=== PATIENT | female | born 1980 | race Caucasian/White ===

== ENCOUNTER 2016-09-11 21:17 | Emergency (ER) | payer OTHER ==
--- NOTE | 2016-09-11 21:40 | ER Document Report ---
ED Medical Screen (RME) - General Stated Complaint: CHEST DISCOMFORT,PRESSURE Notes: patient is a 36 year old female p/w shortness of breath and chest pain for 1.5 weeks, quit smoking Jul 28. Denies any fever, chills I have greeted and performed a rapid initial assessment of this patient. A comprehensive ED assessment and evaluation of the patient, analysis of test results and completion of the medical decision making process will be conducted by additional ED providers. TRAVEL OUTSIDE OF THE [place] IN LAST 30 DAYS: No - Related Data Allergies/Adverse Reactions: No Known Allergies Allergy (Unverified 11/13/13 13:43) Past Medical History - Past Medical History Cardiac Medical History: Reports: Hx Atrial Fibrillation Psychiatric Medical History: Reports: Hx Anxiety - Immunizations Hx Diphtheria, Pertussis, Tetanus Vaccination: Yes Physical Exam - Vital signs Vitals: Temp Pulse Resp BP Pulse Ox 98.4 F 100 16 129/81 H 99 09/11/16 21:33 09/11/16 21:33 09/11/16 21:33 09/11/16 21:33 09/11/16 21:33 Course - Vital Signs Vital signs: Temp Pulse Resp BP Pulse Ox 98.4 F 100 16 129/81 H 99 09/11/16 21:33 09/11/16 21:33 09/11/16 21:33 09/11/16 21:33 09/11/16 21:33
--- NOTE | 2016-09-11 23:36 | ER Document Report ---
ED Cardiac - General Chief Complaint: Chest Pain Stated Complaint: CHEST DISCOMFORT,PRESSURE Time seen by provider: 23:36 Mode of Arrival: Ambulatory Information source: Patient TRAVEL OUTSIDE OF THE [place] IN LAST 30 DAYS: No - HPI Patient complains to provider of: Chest pain, Chest tightness Was the onset of pain: Gradual Is the pain a: New problem Chest pain location: Substernal Quality of pain: Moderate Chest pain radiation location: Back Severity now: Mild Severity at worst: Moderate Pain level currently: 1 Chest pain precipitating factors: At Rest Cardiac risk factors: Smoker Positive cardiac history: No Associated symptoms: Shortness of breath Exacerbated by: Denies Relieved by: Nothing Similar symptoms previously: No Recently seen / treated by doctor: No Notes: Patient is a 36-year-old female presenting to the emergency room complaining of tightness in her chest, pain that radiates to her back, symptoms have been going on for the past few days but worsened today, she recently quit smoking, she denies being on any oral control or other hormone replacement treatment, no recent traveling, no sick contacts - Related Data Allergies/Adverse Reactions: No Known Allergies Allergy (Verified 09/11/16 21:41) Past Medical History - General Information source: Patient - Social History Smoking Status: Former Smoker Chew tobacco use (# tins/day): No Frequency of alcohol use: Occasional Drug Abuse: None Family History: Reviewed & Not Pertinent Patient has suicidal ideation: No Patient has homicidal ideation: No - Past Medical History Cardiac Medical History: Reports: Hx Atrial Fibrillation Renal/ Medical History: Denies: Hx Peritoneal Dialysis Psychiatric Medical History: Reports: Hx Anxiety - Immunizations Hx Diphtheria, Pertussis, Tetanus Vaccination: Yes Review of Systems - Review of Systems Constitutional: No symptoms reported EENT: No symptoms reported Cardiovascular: See HPI Respiratory: See HPI Gastrointestinal: No symptoms reported Genitourinary: No symptoms reported Female Genitourinary: No symptoms reported Musculoskeletal: No symptoms reported Skin: No symptoms reported Hematologic/Lymphatic: No symptoms reported Neurological/Psychological: No symptoms reported -: Yes All other systems reviewed and negative Physical Exam - Vital signs Vitals: Temp Pulse Resp BP Pulse Ox 98.4 F 100 16 129/81 H 99 09/11/16 21:33 09/11/16 21:33 09/11/16 21:33 09/11/16 21:33 09/11/16 21:33 Interpretation: Normal - General General appearance: Appears well, Alert - HEENT Head: Normocephalic, Atraumatic Eyes: Normal Pupils: PERRL - Respiratory Respiratory status: No respiratory distress Chest status: Tender - Tender to palpate over midsternum Breath sounds: Normal Chest palpation: Normal - Cardiovascular Rhythm: Regular Heart sounds: Normal auscultation Murmur: No - Abdominal Inspection: Normal Distension: No distension Bowel sounds: Normal Tenderness: Nontender Organomegaly: No organomegaly - Back Back: Normal, Nontender - Extremities General upper extremity: Normal inspection, Nontender, Normal color, Normal ROM , Normal temperature General lower extremity: Normal inspection, Nontender, Normal color, Normal ROM , Normal temperature, Normal weight bearing. No: Cal's sign Calf: Nontender - Neurological Neuro grossly intact: Yes Cognition: Normal Orientation: AAOx4 Basye Coma Scale Eye Opening: Spontaneous Татьяна Coma Scale Verbal: Oriented Татьяна Coma Scale Motor: Obeys Commands Татьяна Coma Scale Total: 15 Speech: Normal Motor strength normal: LUE, RUE, LLE, RLE Sensory: Normal - Psychological Associated symptoms: Normal affect, Normal mood - Skin Skin Temperature: Warm Skin Moisture: Dry Skin Color: Normal Course - Re-evaluation Re-evalutation: 09/12/16 02:28 Patient's lab and imaging findings were discussed with her at bedside, which are unremarkable, patient is noted to have reproducible pain in the midsternum, symptoms are likely related to musculoskeletal pain, patient was advised to take Motrin 600 mg 3 times a day, follow up with her primary care provider or return if symptoms worsen, patient acknowledges understanding and agreement with this plan - Vital Signs Vital signs: Temp Pulse Resp BP Pulse Ox 98.4 F 90 16 129/81 H 99 09/11/16 21:38 09/11/16 21:38 09/11/16 21:38 09/11/16 21:38 09/11/16 21:38 - Laboratory Result Diagrams: 09/12/16 00:10 09/12/16 00:10 Laboratory results interpreted by me: 09/12/16 00:10 WBC 12.0 H - Diagnostic Test Radiology reviewed: Image reviewed, Reports reviewed - EKG Interpretation by Me EKG shows normal: Sinus rhythm Rate: Normal Rhythm: NSR Discharge - Discharge Clinical Impression: Chest wall pain Condition: Stable Disposition: HOME, SELF-CARE Instructions: Anti-Inflammatory Medication ([facility]), Chest Wall Pain ([facility]) Additional Instructions: Follow up with your primary care provider in one to 2 days. Return to the emergency room immediately if symptoms worsen or any additional concerns. Referrals: EVIE WORKMAN MD [Primary Care Provider] - Follow up as needed
[2016-09-12 00:33] LABS: ABSOLUTE BASOPHILS # (AUTO) 0.1 10^3/uL (0.0-0.2); ABSOLUTE EOSINOPHILS # (AUTO) 0.2 10^3/uL (0.0-0.6); ABSOLUTE MONOCYTES (AUTO) 0.7 10^3/uL (0.1-1.4); ABSOLUTE NEUT (AUTO) 8.1 10^3/uL (1.7-8.2); BASOPHILS % (AUTO) 0.8 % (0-2); EOSINOPHILS % (AUTO) 1.5 % (0-6); HEMATOCRIT 40.9 % (36.0-47.0); HEMOGLOBIN 13.8 g/dL (12.0-15.5); HGB HCT DIFFERENCE 0.5; LYMPHOCYTES % (AUTO) 24.7 % (13-45); MEAN CORPUSCULAR HEMOGLOBIN 28.9 pg (27.0-33.4); MEAN CORPUSCULAR HGB CONC 33.7 g/dL (32.0-36.0); MEAN CORPUSCULAR VOLUME 86 fl (80-97); MONOCYTES % (AUTO) 5.7 % (3-13); RED BLOOD COUNT 4.77 10^6/uL (3.72-5.28); RED CELL DISTRIBUTION WIDTH 13.2 % (11.5-14.0); SEGMENTED NEUTROPHILS % (AUTO) 67.3 % (42-78)
[2016-09-12 00:44] LABS: ALANINE AMINOTRANSFERASE 29 U/L (9-52); ALBUMIN 4.2 g/dL (3.5-5.0); ALKALINE PHOSPHATASE 54 U/L (38-126); ANION GAP 10 (5-19); ASPARTATE AMINO TRANSFERASE 25 U/L (14-36); BILIRUBIN,TOTAL 0.4 mg/dL (0.2-1.3); BLOOD UREA NITROGEN 17 mg/dL (7-20); CALCIUM 10.1 mg/dL (8.4-10.2); CARBON DIOXIDE 25 mmol/L (22-30); CHLORIDE 104 mmol/L (98-107); CREATINE KINASE 106 U/L (30-135); GLUCOSE 96 mg/dL (75-110); POTASSIUM 4.2 mmol/L (3.6-5.0); SODIUM 138.6 mmol/L (137-145)
[2016-09-12 00:57] LABS: TROPONIN I < 0.012 ng/mL
[2016-09-12 05:14] VITALS: BP 112/54
--- NOTE | 2016-09-12 12:11 | EKG REPORT ---
SEVERITY:- NORMAL ECG - SINUS RHYTHM : Confirmed by: Roro Langford MD 12-Sep-2016 12:10:40
== END 2016-09-12 03:15 | disposition home or self-care (01) ==
LOC: ER 21:17
DX: R07.89 Other chest pain (principal); R06.02 Shortness of breath; I48.91 Unspecified atrial fibrillation; Z87.891 Personal history of nicotine dependence
CPT/HCPCS: 36415; 71020; 80053; 82550; 82553; 84443; 84484; 84703; 85025; 85379; 93005; 93010; 99285

== ENCOUNTER 2016-09-13 06:29 | Emergency (ER) | payer OTHER ==
--- NOTE | 2016-09-13 08:43 | ER Document Report ---
ED General - General Chief Complaint: Dizziness Stated Complaint: CHEST TIGHTNESS Mode of Arrival: Ambulatory Information source: Patient Notes: 28-year-old female with extensive history of anxiety who has not been taking them as a medication that she feels anxious about the side effects of it presents with complaints of chest tightness closing sensation in the throat tingling sensations in the fingers face flushing sensation in the face of three- day duration. Patient notes she recently stopped smoking and feels anxious about this as well. Patient was seen here and had extensive workup performed TRAVEL OUTSIDE OF THE [place] IN LAST 30 DAYS: No - HPI Onset: Other Onset/Duration: Persistent Quality of pain: Pressure Severity: Mild Pain Level: 1 Associated symptoms: Chest pain, Shortness of breath Exacerbated by: Denies Relieved by: Denies Similar symptoms previously: Yes Recently seen / treated by doctor: Yes - Related Data Allergies/Adverse Reactions: No Known Allergies Allergy (Verified 09/13/16 06:39) Past Medical History - Social History Smoking Status: Former Smoker Cigarette use (# per day): No Chew tobacco use (# tins/day): No Smoking Education Provided: No Frequency of alcohol use: Occasional Drug Abuse: None Family History: Reviewed & Not Pertinent - Past Medical History Cardiac Medical History: Reports: Hx Atrial Fibrillation Renal/ Medical History: Denies: Hx Peritoneal Dialysis Psychiatric Medical History: Reports: Hx Anxiety Surgical Hx: Negative - Immunizations Hx Diphtheria, Pertussis, Tetanus Vaccination: Yes Review of Systems - Review of Systems Notes: REVIEW OF SYSTEMS: CONSTITUTIONAL : Denies fever, chills, or sweats. Denies recent illness. EENT: Admits closing sensation in the throat CARDIOVASCULAR: Admits chest tightness RESPIRATORY: Admits shortness of breath GASTROINTESTINAL: Denies abdominal pain or distention. Denies nausea, vomiting , or diarrhea. Denies blood in vomitus, stools, or per rectum. Denies black, tarry stools. Denies constipation. GENITOURINARY: Denies difficulty urinating, painful urination, burning, frequency, blood in urine, or discharge. FEMALE GENITOURINARY: Denies vaginal bleeding, heavy or abnormal periods, irregular periods. Denies vaginal discharge or odor. MUSCULOSKELETAL: Denies back or neck pain or stiffness. Denies joint pain or swelling. SKIN: Denies rash, lesions or sores. HEMATOLOGIC : Denies easy bruising or bleeding. LYMPHATIC: Denies swollen, enlarged glands. NEUROLOGICAL: Admits to tingling sensation face and fingers PSYCHIATRIC: Admits to anxiety ALL OTHER SYSTEMS REVIEWED AND NEGATIVE. Dictation was performed using [employer] voice recognition software PHYSICAL EXAMINATION: GENERAL: Well-appearing, well-nourished and in no acute distress. HEAD: Atraumatic, normocephalic. EYES: Pupils equal round and reactive to light, extraocular movements intact, conjunctiva are normal. ENT: Nares patent, oropharynx clear without exudates. Moist mucous membranes. NECK: Normal range of motion, supple without lymphadenopathy LUNGS: Breath sounds clear to auscultation bilaterally and equal. No wheezes rales or rhonchi. HEART: Regular rate and rhythm without murmurs ABDOMEN: Soft, nontender, nondistended abdomen. No guarding, no rebound. No masses appreciated. Female : deferred Musculoskeletal: Normal range of motion, no pitting or edema. No cyanosis. NEUROLOGICAL: Cranial nerves grossly intact. Normal speech, normal gait. Normal sensory, motor exams PSYCH: Patient appears extremely anxious and tearful when talking about her anxiety SKIN: Warm, Dry, normal turgor, no rashes or lesions noted. Physical Exam - Vital signs Vitals: Temp Pulse Resp BP Pulse Ox 98.2 F 113 H 20 123/86 H 98 09/13/16 06:38 09/13/16 06:38 09/13/16 06:38 09/13/16 06:38 09/13/16 06:38 Course - Re-evaluation Re-evalutation: 09/13/16 08:42 Patient has obvious anxiety component, given that she had extensive workup I do not expect any life-threatening issues and do not believe she requires any other imaging at this time. Patient is instructed that she must take her anxiety medication and patient herself states that this is to find the issue at hand After performing a Medical Screening Examination, I estimate there is LOW risk for RUPTURED ESOPHAGUS, PNEUMOTHORAX, PULMONARY EMBOLISM, ACUTE CORONARY SYNDROME, OR THORACIC AORTIC DISSECTION, thus I consider the discharge disposition reasonable. The patient and I have discussed the diagnosis and risks , and we agree with discharging home with close follow-up. We also discussed returning to the Emergency Department immediately if new or worsening symptoms occur. We have discussed the symptoms which are most concerning (e.g., bloody sputum, worsening pain or shortness of breath) that necessitate immediate return. - Vital Signs Vital signs: Temp Pulse Resp BP Pulse Ox 98.2 F 113 H 18 111/83 98 09/13/16 06:38 09/13/16 06:38 09/13/16 07:38 09/13/16 07:38 09/13/16 07:38 - Diagnostic Test Radiology reviewed: Image reviewed, Reports reviewed - EKG Interpretation by [facility] EKG shows normal: Sinus rhythm, [place], Intervals, QRS Complexes Discharge - Discharge Clinical Impression: Anxiety Chest pain Qualifiers: Chest pain type: unspecified Qualified Code(s): R07.9 - Chest pain, unspecified Condition: Stable Disposition: HOME, SELF-CARE Instructions: Anxiety ([facility]) Additional Instructions: Follow up with your physician tomorrow for further care or return to the ED IMMEDIATELY if symptoms worsen or new concerns occur Referrals: ABRAHAM ROSENBERG MD [Primary Care Provider] - Follow up tomorrow
[2016-09-13] MEDS ORDERED: LORAZEPAM 1 MG TABLET PO ONE (09:24)
[2016-09-13 09:28] VITALS: BP 108/74
--- NOTE | 2016-09-13 13:44 | EKG REPORT ---
SEVERITY:- NORMAL ECG - SINUS RHYTHM : Confirmed by: Vu Lynch MD 13-Sep-2016 13:44:03
== END 2016-09-13 09:42 | disposition home or self-care (01) ==
LOC: ER 06:29
DX: F41.9 Anxiety disorder, unspecified (principal); R07.89 Other chest pain; R09.89 Other specified symptoms and signs involving the circulatory and respiratory systems; R20.2 Paresthesia of skin; R23.2 Flushing; R06.02 Shortness of breath
CPT/HCPCS: 71020; 93005; 93010; 99284

== ENCOUNTER → 2017-03-18 | Outpatient (CLI) | payer OTHER ==
--- NOTE | 2017-03-18 14:26 | RADIOLOGY REPORT (SQ) ---
EXAM DESCRIPTION: FOOT RIGHT COMPLETE COMPLETED DATE/TIME: 03/18/2017 2:13 pm REASON FOR STUDY: PAIN IN RIGHT FOOT M79.671 PAIN IN RIGHT FOOT COMPARISON: None. NUMBER OF VIEWS: Three views. TECHNIQUE: AP, lateral and oblique radiographic images acquired of the right foot. LIMITATIONS: None. FINDINGS: MINERALIZATION: Normal. BONES: No fracture or dislocation. There is subchondral sclerosis in head of 1st metatarsal and in t he base of the 1st proximal phalanx. JOINTS: Degenerative joint changes at the 1st metatarsal-phalangeal joint. SOFT TISSUES: No soft tissue swelling. No foreign body. OTHER: No other significant finding. IMPRESSION: Degenerative joint disease. TECHNICAL DOCUMENTATION: JOB ID: [id number] [employer]- All Rights Reserved
== END ==
LOC: OD 13:59
PROVIDERS: ATTEND Physician Assistant
DX: M79.671 Pain in right foot (principal)

== ENCOUNTER → 2017-07-04 | Outpatient (CLI) | payer OTHER ==
--- NOTE | 2017-07-04 17:36 | RADIOLOGY REPORT (SQ) ---
EXAM DESCRIPTION: TIBIA FIBULA LEFT COMPLETED DATE/TIME: 07/04/2017 4:59 pm REASON FOR STUDY: PAIN IN LEFT LEG M79.661 PAIN IN RIGHT LOWER LEG M79.662 PAIN IN LEFT LOWER LEG COMPARISON: None. NUMBER OF VIEWS: Two views. TECHNIQUE: Two radiographic images acquired of the left tibia and fibula to include the knee and ank le in at least one projection. LIMITATIONS: None. FINDINGS: MINERALIZATION: Normal. BONES: No acute fracture or dislocation. No worrisome bone lesions. SOFT TISSUES: No obvious swelling or foreign body. OTHER: No other significant finding. IMPRESSION: NEGATIVE STUDY OF THE LEFT TIBIA AND FIBULA. NO RADIOGRAPHIC EVIDENCE OF ACUTE INJURY. TECHNICAL DOCUMENTATION: JOB ID: [id number] [employer]- All Rights Reserved
--- NOTE | 2017-07-04 17:37 | RADIOLOGY REPORT (SQ) ---
EXAM DESCRIPTION: TIBIA FIBULA RIGHT COMPLETED DATE/TIME: 07/04/2017 4:59 pm REASON FOR STUDY: PAIN IN RIGHT LEG M79.661 PAIN IN RIGHT LOWER LEG M79.662 PAIN IN LEFT LOWER LEG COMPARISON: None. NUMBER OF VIEWS: Two views. TECHNIQUE: Two radiographic images acquired of the right tibia and fibula to include the knee and an kle in at least one projection. LIMITATIONS: None. FINDINGS: MINERALIZATION: Normal. BONES: No acute fracture or dislocation. No worrisome bone lesions. Benign-appearing cartilaginous exostosis off the right proximal medial tibial metaphysis SOFT TISSUES: No obvious swelling or foreign body. OTHER: No other significant finding. IMPRESSION: No acute fracture or malalignment. No focal soft tissue findings. Benign cartilaginous exostosis off the medial right proximal tibial metaphysis. TECHNICAL DOCUMENTATION: JOB ID: [id number] [employer]- All Rights Reserved
== END ==
LOC: OD 16:20
PROVIDERS: ATTEND Physician Assistant
DX: M79.661 Pain in right lower leg (principal); M79.662 Pain in left lower leg

== ENCOUNTER 2017-07-05 00:12 | Emergency (ER) | payer OTHER ==
[2017-07-05 00:55] LABS: APPEARANCE,URINE CLOUDY; BILIRUBIN,URINE NEGATIVE (NEGATIVE); COLOR,URINE PINK; GLUCOSE, URINE NEGATIVE (NEGATIVE); KETONES,URINE NEGATIVE (NEGATIVE); LEUKOCYTE ESTERASE,URINE LARGE (NEGATIVE); NITRITE,URINE NEGATIVE (NEGATIVE); PROTEIN,URINE 100 mg/dL (NEGATIVE)
[2017-07-05] MEDS ORDERED: NORMAL SALINE 1000 ML 1,000 ML IV ONE (02:59)
[2017-07-05] MEDS ORDERED: KETOROLAC TROMETHAMINE INJ/PF 30 MG/1 ML SDV IV ONE (02:59)
--- NOTE | 2017-07-05 03:20 | ER Document Report ---
ED GI/ - General Mode of Arrival: Ambulatory Information source: Patient TRAVEL OUTSIDE OF THE [place] IN LAST 30 DAYS: No - HPI Patient complains to provider of: Dysuria, Flank pain - left, Hematuria, Urinary retention Onset: Other - see notes above Location: Left flank Associated symptoms: Other - see notes above <KENDELL KELSEY - Last Filed: 07/05/17 03:11> <BRIANNE ALEXANDER - Last Filed: 07/05/17 06:13> - General Chief Complaint: Urinary Problem Stated Complaint: BLOOD IN URINE Time Seen by Provider: 07/05/17 02:58 Notes: 36 year old female with history of anxiety and rapid heart rate (treated with Metoprolol) presents to the ED complaining of right flank pain, dysuria, urinary retention, and hematuria that started yesterday evening. Patient denies any fever. At bedside, the patient reports to feeling much better than when she first arrived. Patient denies history of kidney stones. (KENDELL KELSEY) - Related Data Allergies/Adverse Reactions: No Known Allergies Allergy (Verified 09/13/16 06:39) Past Medical History - General Information source: Patient - Social History Smoking Status: Unknown if Ever Smoked Family History: Reviewed & Not Pertinent - Past Medical History Cardiac Medical History: Reports: Hx Atrial Fibrillation Renal/ Medical History: Denies: Hx Peritoneal Dialysis Psychiatric Medical History: Reports: Hx Anxiety - Immunizations Hx Diphtheria, Pertussis, Tetanus Vaccination: Yes <KENDELL KELSEY - Last Filed: 07/05/17 03:11> Review of Systems - Review of Systems Constitutional: No symptoms reported EENT: No symptoms reported Cardiovascular: No symptoms reported Respiratory: No symptoms reported Gastrointestinal: No symptoms reported Genitourinary: See HPI, Burning, Dysuria, Flank pain - left, Hematuria, Pain, Retention Female Genitourinary: No symptoms reported Musculoskeletal: No symptoms reported Skin: No symptoms reported Hematologic/Lymphatic: No symptoms reported Neurological/Psychological: No symptoms reported -: Yes All other systems reviewed and negative <KENDELL KELSEY - Last Filed: 07/05/17 03:11> Physical Exam - Vital signs Interpretation: Tachycardic - General General appearance: Appears well, Alert - HEENT Head: Normocephalic, Atraumatic Eyes: Normal Pupils: PERRL - Respiratory Respiratory status: No respiratory distress Chest status: Nontender Breath sounds: Normal Chest palpation: Normal - Cardiovascular Rhythm: Regular Heart sounds: Normal auscultation Murmur: No - Abdominal Inspection: Normal Distension: No distension Bowel sounds: Normal Tenderness: Nontender Organomegaly: No organomegaly - Back Back: Normal, CVA tenderness - L - Extremities General upper extremity: Normal inspection, Nontender, Normal color, Normal ROM , Normal temperature General lower extremity: Normal inspection, Nontender, Normal color, Normal ROM , Normal temperature, Normal weight bearing. No: Cal's sign - Neurological Neuro grossly intact: Yes Cognition: Normal Orientation: AAOx4 Rupert Coma Scale Eye Opening: Spontaneous Татьяна Coma Scale Verbal: Oriented Татьяна Coma Scale Motor: Obeys Commands Rupert Coma Scale Total: 15 Speech: Normal Motor strength normal: LUE, RUE, LLE, RLE Sensory: Normal - Psychological Associated symptoms: Normal affect, Normal mood - Skin Skin Temperature: Warm Skin Moisture: Dry Skin Color: Normal <BRIANNE ALEXANDER - Last Filed: 07/05/17 06:13> - Vital signs Vitals: Temp Pulse Resp BP Pulse Ox 98.3 F 107 H 18 132/88 H 98 07/05/17 00:28 07/05/17 00:28 07/05/17 00:28 07/05/17 00:28 07/05/17 00:28 Course <KENDELL KELSEY - Last Filed: 07/05/17 03:11> - Laboratory Result Diagrams: 07/05/17 03:23 07/05/17 03:23 - Diagnostic Test Radiology reviewed: Reports reviewed <BRIANNE ALEXANDER - Last Filed: 07/05/17 06:13> - Re-evaluation Re-evalutation: 07/05/17 06:11 Patient is a 36-year-old female who presents with mild tachycardia and discomfort in her left flank. Patient was having some difficulty urinating and saw a lot of blood in her urine. Patient has greater than 182 RBCs and WBCs. Symptoms are concerning for pyelonephritis. Patient had initially refused blood work, CT, and IV ceftriaxone. Patient then was agreeable to blood work and CT. Patient was then willing to have Rocephin. Symptoms are consistent with pyelonephritis. No evidence for stone on CT. Patient will be discharged home with antibiotics. Return immediately if any fever, worsening pain, nausea or vomiting. Understands agrees with plan. Stable for discharge. (BRIANNE ALEXANDER) - Vital Signs Vital signs: Temp Pulse Resp BP Pulse Ox 98.3 F 107 H 18 132/88 H 98 07/05/17 00:28 07/05/17 00:28 07/05/17 00:28 07/05/17 00:28 07/05/17 00:28 - Laboratory Laboratory results interpreted by me: 07/05/17 07/05/17 00:30 03:23 WBC 16.2 H Seg Neutrophils % 81.3 H Lymphocytes % 12.9 L Absolute Neutrophils 13.2 H Urine Protein 100 H Urine Blood LARGE H Urine Urobilinogen 2.0 H Ur Leukocyte Esterase LARGE H Discharge <KENDELL KELSEY - Last Filed: 07/05/17 03:11> <BRIANNE ALEXANDER - Last Filed: 07/05/17 06:13> - Discharge Clinical Impression: Pyelonephritis Condition: Stable Disposition: HOME, SELF-CARE Instructions: Pyelonephritis ([facility]) Prescriptions: Cephalexin Monohydrate [Keflex 500 mg Capsule] 500 mg PO Q6H 5 Days #40 capsule Forms: Return to Work Referrals: FITO MUSE PA-C [Primary Care Provider] - Follow up in 3-5 days Scribe Attestation: 07/05/17 06:13 I personally performed the services described in the documentation, reviewed and edited the documentation which was dictated to the scribe in my presence, and it accurately records my words and actions. (BRIANNE ALEXANDER) Scribe Documentation - Scribe Written by Jon:: Jon Rachel, 07/05/2017 0321 acting as scribe for :: Humaira <KENDELL KELSEY - Last Filed: 07/05/17 03:11>
[2017-07-05 03:37] LABS: ABSOLUTE BASOPHILS # (AUTO) 0.1 10^3/uL (0.0-0.2); ABSOLUTE EOSINOPHILS # (AUTO) 0.1 10^3/uL (0.0-0.6); ABSOLUTE LYMPHOCYTES (AUTO) 2.1 10^3/uL (0.5-4.7); ABSOLUTE MONOCYTES (AUTO) 0.7 10^3/uL (0.1-1.4); ABSOLUTE NEUT (AUTO) 13.2 10^3/uL (1.7-8.2); BASOPHILS % (AUTO) 0.4 % (0-2); EOSINOPHILS % (AUTO) 0.8 % (0-6); HEMATOCRIT 42.5 % (36.0-47.0); HEMOGLOBIN 14.2 g/dL (12.0-15.5); LYMPHOCYTES % (AUTO) 12.9 % (13-45); MEAN CORPUSCULAR HEMOGLOBIN 27.6 pg (27.0-33.4); MEAN CORPUSCULAR HGB CONC 33.5 g/dL (32.0-36.0); MEAN CORPUSCULAR VOLUME 83 fl (80-97); MONOCYTES % (AUTO) 4.6 % (3-13); PLATELET COUNT 354 10^3/uL (150-450); RED BLOOD COUNT 5.14 10^6/uL (3.72-5.28); RED CELL DISTRIBUTION WIDTH 13.4 % (11.5-14.0); SEGMENTED NEUTROPHILS % (AUTO) 81.3 % (42-78); TOTAL CELLS COUNTED % (AUTO) 100 %; WHITE BLOOD COUNT 16.2 10^3/uL (4.0-10.5)
[2017-07-05 03:54] LABS: ALANINE AMINOTRANSFERASE 49 U/L (9-52); ALKALINE PHOSPHATASE 63 U/L (38-126); ANION GAP 14 (5-19); ASPARTATE AMINO TRANSFERASE 33 U/L (14-36); BILIRUBIN,DIRECT 0.2 mg/dL (0.0-0.4); BILIRUBIN,TOTAL 0.2 mg/dL (0.2-1.3); BLOOD UREA NITROGEN 12 mg/dL (7-20); CALCIUM 9.6 mg/dL (8.4-10.2); CARBON DIOXIDE 25 mmol/L (22-30); CHLORIDE 103 mmol/L (98-107); GLUCOSE 101 mg/dL (75-110); POTASSIUM 4.5 mmol/L (3.6-5.0); SODIUM 141.6 mmol/L (137-145); TOTAL PROTEIN 8.1 g/dL (6.3-8.2)
[2017-07-05] MEDS ORDERED: CEFTRIAXONE 1 GM/D5W RTU 1 GM/50 ML RTUPB IV ONE (05:23)
--- NOTE | 2017-07-05 05:45 | RADIOLOGY REPORT (SQ) ---
EXAM DESCRIPTION: CT ABDOMEN AND PELVIS WITHOUT CONTRAST CLINICAL HISTORY: EVALUATE FOR RENAL STONE COMPARISON: None Available. TECHNIQUE: CT of the abdomen and pelvis without IV contrast. FINDINGS: Abdomen: The liver has normal size and density. No calcified gallstones. The spleen, pancreas, and adrenal glands are unremarkable. The kidneys have normal size and contour without evidence of hydronephrosis. No obstructing ureteral calculi. Aortoiliac atherosclerosis. IVC is unremarkable. No free intraperitoneal air. The stomach and duodenum have normal course. Pelvis: Uterus is not enlarged. Urinary bladder is unremarkable. No free pelvic fluid or lymphadenopathy. No dilated loops of large or small bowel. Normal appendix. The visualized lung bases are clear. No destructive bone lesions identified. DLP: 692.26 mGy-cm IMPRESSION: 1. No acute inflammatory or obstructive abnormality identified This exam was performed according to our departmental dose-optimization program, which includes automated exposure control, adjustment of the mA and/or kV according to patient size and/or use of iterative reconstruction technique.
[2017-07-05 06:23] VITALS: BP 119/64
== END 2017-07-05 06:20 | disposition home or self-care (01) ==
LOC: ER 00:12
DX: N12 Tubulo-interstitial nephritis, not specified as acute or chronic (principal); R39.198 Other difficulties with micturition; F41.9 Anxiety disorder, unspecified; R00.2 Palpitations; R10.9 Unspecified abdominal pain; R30.0 Dysuria; R33.9 Retention of urine, unspecified; R31.9 Hematuria, unspecified
CPT/HCPCS: 99284; 96365; 36415; 87086; 85025; 81025; 87088; 80053; 81001; 87186; 76380; J0696

== ENCOUNTER 2017-07-14 16:40 | Emergency (ER) | payer OTHER ==
[2017-07-14] MEDS ORDERED: ACETAMINOPHEN 325 MG TABLET PO ONE (17:06)
[2017-07-14] MEDS ORDERED: MORPHINE SULFATE 10 MG/ML INJ IV ONE (18:06)
[2017-07-14] MEDS ORDERED: NORMAL SALINE 1000 ML 1,000 ML IV ONE ×2 (18:06→19:55)
--- NOTE | 2017-07-14 18:07 | ER Document Report ---
ED Medical Screen (RME) - General Chief Complaint: Flank Pain Stated Complaint: FEVER, SIDE PAIN Time Seen by Provider: 07/14/17 18:02 Mode of Arrival: Ambulatory Information source: Patient Notes: 37-year-old female who was seen here about a week ago diagnosed with UTI presents with complaints of continued left flank pain. Patient saw her PCP yesterday notes the urinary symptoms have resolved. Patient was placed on Keflex. Noted today to be febrile I have greeted and performed a rapid initial assessment of this patient. A comprehensive ED assessment and evaluation of the patient, analysis of test results and completion of the medical decision making process will be conducted by additional ED providers. PHYSICAL EXAMINATION: GENERAL: Well-appearing, well-nourished and in no acute distress. HEAD: Atraumatic, normocephalic. EYES: Pupils equal round extraocular movements intact, conjunctiva are normal. ENT: Nares patent NECK: Normal range of motion LUNGS: No respiratory distress Musculoskeletal: Normal range of motion left flank pain NEUROLOGICAL: Normal speech, normal gait. PSYCH: Normal mood, normal affect. SKIN: Warm, Dry, normal turgor, no rashes or lesions noted. TRAVEL OUTSIDE OF THE [place] IN LAST 30 DAYS: No - Related Data Allergies/Adverse Reactions: No Known Allergies Allergy (Verified 07/14/17 16:41) Past Medical History - Social History Frequency of alcohol use: None Drug Abuse: None - Past Medical History Cardiac Medical History: Reports: Hx Atrial Fibrillation Renal/ Medical History: Denies: Hx Peritoneal Dialysis Psychiatric Medical History: Reports: Hx Anxiety - Immunizations Hx Diphtheria, Pertussis, Tetanus Vaccination: Yes Physical Exam - Vital signs Vitals: Temp Pulse Resp BP Pulse Ox 101.6 F H 136 H 16 131/89 H 96 07/14/17 17:01 07/14/17 17:01 07/14/17 17:01 07/14/17 17:01 07/14/17 17:01 Course - Vital Signs Vital signs: Temp Pulse Resp BP Pulse Ox 99.6 F 136 H 16 131/89 H 96 07/14/17 18:06 07/14/17 17:01 07/14/17 17:01 07/14/17 17:01 07/14/17 17:01
[2017-07-14 18:27] LABS: ABSOLUTE BASOPHILS # (AUTO) 0.1 10^3/uL (0.0-0.2); ABSOLUTE LYMPHOCYTES (AUTO) 1.2 10^3/uL (0.5-4.7); ABSOLUTE MONOCYTES (AUTO) 1.1 10^3/uL (0.1-1.4); ABSOLUTE NEUT (AUTO) 16.6 10^3/uL (1.7-8.2); BASOPHILS % (AUTO) 0.3 % (0-2); EOSINOPHILS % (AUTO) 0.2 % (0-6); HEMATOCRIT 43.6 % (36.0-47.0); HEMOGLOBIN 14.9 g/dL (12.0-15.5); LYMPHOCYTES % (AUTO) 6.5 % (13-45); MEAN CORPUSCULAR HEMOGLOBIN 28.4 pg (27.0-33.4); MEAN CORPUSCULAR HGB CONC 34.2 g/dL (32.0-36.0); MEAN CORPUSCULAR VOLUME 83 fl (80-97); MONOCYTES % (AUTO) 5.7 % (3-13); PLATELET COUNT 321 10^3/uL (150-450); RED BLOOD COUNT 5.25 10^6/uL (3.72-5.28); RED CELL DISTRIBUTION WIDTH 13.7 % (11.5-14.0); SEGMENTED NEUTROPHILS % (AUTO) 87.3 % (42-78); TOTAL CELLS COUNTED % (AUTO) 100 %
[2017-07-14 18:30] LABS: APPEARANCE,URINE CLOUDY; BILIRUBIN,URINE NEGATIVE (NEGATIVE); COLOR,URINE YELLOW; GLUCOSE, URINE NEGATIVE (NEGATIVE); KETONES,URINE NEGATIVE (NEGATIVE); LEUKOCYTE ESTERASE,URINE MODERATE (NEGATIVE); NITRITE,URINE NEGATIVE (NEGATIVE); PROTEIN,URINE NEGATIVE (NEGATIVE); URINE SPECIFIC GRAVITY 1.012; UROBILINOGEN,URINE NEGATIVE mg/dL (<2.0)
[2017-07-14 18:48] LABS: ALANINE AMINOTRANSFERASE 27 U/L (9-52); ALBUMIN 4.7 g/dL (3.5-5.0); ALKALINE PHOSPHATASE 56 U/L (38-126); ANION GAP 12 (5-19); ASPARTATE AMINO TRANSFERASE 19 U/L (14-36); BILIRUBIN,DIRECT 0.3 mg/dL (0.0-0.4); BILIRUBIN,TOTAL 0.5 mg/dL (0.2-1.3); BLOOD UREA NITROGEN 9 mg/dL (7-20); CALCIUM 9.8 mg/dL (8.4-10.2); CARBON DIOXIDE 24 mmol/L (22-30); CHLORIDE 101 mmol/L (98-107); GLUCOSE 107 mg/dL (75-110); LIPASE 51.4 U/L (23-300); SODIUM 136.6 mmol/L (137-145); TOTAL PROTEIN 7.7 g/dL (6.3-8.2)
[2017-07-14] MEDS ORDERED: CIPROFLOXACIN HCL 500 MG TABLET PO ONE ×2 (19:24→21:39)
--- NOTE | 2017-07-14 21:14 | RADIOLOGY REPORT (SQ) ---
EXAM DESCRIPTION: CT LTD RENAL STONE PROTOCOL ON COMPLETED DATE/TIME: 07/14/2017 9:03 pm REASON FOR STUDY: left flank pain, hematuria, leukocytosis COMPARISON: 07/05/2017 TECHNIQUE: CT scan of the abdomen and pelvis performed without intravenous or oral contrast. Images reviewed with lung, soft tissue, and bone windows. Reconstructed coronal and sagittal MPR images revi ewed. All images stored on PACS. All CT scanners at this facility use dose modulation, iterative reconstruction, and/or weight based d osing when appropriate to reduce radiation dose to as low as reasonably achievable (ALARA). [facility]: Dose Right [facility]: CareDose [facility]: Dose Right [facility]: Teradose 4D [facility]: Smart Sera Prognostics RADIATION DOSE: CT Rad equipment meets quality standard of care and radiation dose reduction techniq ues were employed. CTDIvol: 9.9 mGy. DLP: 555 mGy-cm.mGy. LIMITATIONS: None. FINDINGS: LOWER CHEST: No significant findings. No nodules or infiltrates. NON-CONTRASTED LIVER, SPLEEN, ADRENALS: Evaluation limited by lack of IV contrast. No identified sign ificant masses. PANCREAS: No masses. No peripancreatic inflammatory changes. GALLBLADDER: No identified stones by CT criteria. No inflammatory changes to suggest cholecystitis. RIGHT KIDNEY AND URETER: No suspicious masses. Assessment limited by lack of IV contrast. No signif icant calcifications. No hydronephrosis or hydroureter. LEFT KIDNEY AND URETER: No suspicious masses. Assessment limited by lack of IV contrast. No signifi cant calcifications. No hydronephrosis or hydroureter. AORTA AND RETROPERITONEUM: No aneurysm. No retroperitoneal masses or adenopathy. BOWEL AND PERITONEAL CAVITY: No obvious masses or inflammatory changes. No free fluid. APPENDIX: Normal. PELVIS, BLADDER, AND ABDOMINAL WALL:No abnormal masses. No free fluid. Bladder normal. BONES: No significant findings. OTHER: No other significant finding. IMPRESSION: NO ACUTE FINDINGS IDENTIFIED ON THIS NONCONTRAST CT OF THE ABDOMEN AND PELVIS. NO SIGNI FICANT CHANGE FROM 07/05/2017. COMMENT: Quality ID # [id number]: Final reports with documentation of one or more dose reduction techniques (e.g., Automated exposure control, adjustment of the mA and/or kV according to patient size, use of iterative reconstruction technique) TECHNICAL DOCUMENTATION: JOB ID: [id number]- All Rights Reserved
[2017-07-14] MEDS ORDERED: NORMAL SALINE 250 ML IV PRN (21:30)
[2017-07-14] MEDS ORDERED: PHYTONADIONE 5 MG TABLET PO ONE (21:30)
--- NOTE | 2017-07-14 21:33 | ER Document Report ---
ED GI/ - General Chief Complaint: Flank Pain Stated Complaint: FEVER, SIDE PAIN Time Seen by Provider: 07/14/17 18:02 Mode of Arrival: Ambulatory Information source: Patient Notes: Patient is a 37-year-old female who was diagnosed 1 week ago with UTI, given Keflex with dysuria symptoms. Patient states that her symptoms have gotten better, except for some left sided abdominal, flank pain that is more of a "aching" feeling. Patient states that this started about 3 days ago. She did go to her primary care provider today and had a fever. She took Tylenol at home which did help with the fever. She denies any burning with urination, abnormal vaginal discharge, history of kidney stones, blood in her urine. TRAVEL OUTSIDE OF THE [place] IN LAST 30 DAYS: No - Related Data Allergies/Adverse Reactions: No Known Allergies Allergy (Verified 07/14/17 16:41) Past Medical History - General Information source: Patient - Social History Smoking Status: Former Smoker Frequency of alcohol use: None Drug Abuse: None Family History: Reviewed & Not Pertinent Patient has suicidal ideation: No Patient has homicidal ideation: No - Past Medical History Cardiac Medical History: Reports: Hx Atrial Fibrillation Renal/ Medical History: Denies: Hx Peritoneal Dialysis Psychiatric Medical History: Reports: Hx Anxiety - Immunizations Hx Diphtheria, Pertussis, Tetanus Vaccination: Yes Review of Systems - Review of Systems Constitutional: See HPI EENT: No symptoms reported Cardiovascular: No symptoms reported Respiratory: No symptoms reported Gastrointestinal: No symptoms reported Genitourinary: See HPI Female Genitourinary: No symptoms reported Musculoskeletal: No symptoms reported Skin: No symptoms reported Hematologic/Lymphatic: No symptoms reported Neurological/Psychological: No symptoms reported Physical Exam - Vital signs Vitals: Temp Pulse Resp BP Pulse Ox 101.6 F H 136 H 16 131/89 H 96 07/14/17 17:01 07/14/17 17:01 07/14/17 17:01 07/14/17 17:01 07/14/17 17:01 - Notes Notes: PHYSICAL EXAMINATION: GENERAL: Well-appearing and in no acute distress. HEAD: Atraumatic, normocephalic. EYES: Pupils equal round and reactive to light, extraocular movements intact, sclera anicteric, conjunctiva are normal. NECK: Normal range of motion, supple without lymphadenopathy LUNGS: CTAB and equal. No wheezes rales or rhonchi. HEART: Regular rate and rhythm without murmurs ABDOMEN: Soft, no tenderness. No guarding, no rebound BACK: no vertebral tenderness, normal ROM GI/: left CVA tenderness EXTREMITIES: Normal range of motion, no pitting edema. No cyanosis. NEUROLOGICAL: Cranial nerves grossly intact. Normal sensory/motor exams. PSYCH: Normal mood, normal affect. SKIN: Warm, Dry, normal turgor, no rashes or lesions noted Course - Re-evaluation Re-evalutation: 07/14/17 22:29 Patient is a white count of 19, CT renal protocol reveals no stone today, urinalysis has moderate leukocytes and small blood with a small amount of white blood cells. I will treat patient at this time with Cipro. I did offer admission with IV antibiotics, but patient looks very well and says that she "feels well" and only came" for the fever." She denies admission at this time but I did advise her to come back with any worsening symptoms as there is a low threshold to admit patients with her diagnosis. Her tachycardia did resolve after 2 L of IV fluids and Tylenol brought her fever down to normal. manual pulse of 92bpm per myself. 07/14/17 22:31 pt started complaining of nasal congestion while here in the ER, states it just started here in the room. declines flu testing, stating she just wants to go home. 07/14/17 22:31 - Vital Signs Vital signs: Temp Pulse Resp BP Pulse Ox 97.9 F 105 H 18 125/75 99 07/14/17 21:44 07/14/17 21:44 07/14/17 21:44 07/14/17 21:44 07/14/17 21:44 - Laboratory Result Diagrams: 07/14/17 18:15 07/14/17 18:15 Laboratory results interpreted by me: 07/14/17 07/14/17 07/14/17 18:15 18:15 18:15 WBC 19.0 H Seg Neutrophils % 87.3 H Lymphocytes % 6.5 L Absolute Neutrophils 16.6 H Sodium 136.6 L Urine Blood SMALL H Ur Leukocyte Esterase MODERATE H Discharge - Discharge Clinical Impression: Pyelonephritis, Congestion of nasal sinus Condition: Stable Disposition: HOME, SELF-CARE Instructions: Pyelonephritis ([facility]) Additional Instructions: Return immediately for any new or worsening symptoms. Follow up with primary care provider, call tomorrow to make followup appointment. Take your cipro twice daily for 10 days! Prescriptions: Ciprofloxacin HCl [Cipro 500 mg Tablet] 500 mg PO BID #20 tablet Fluticasone Propionate [Flonase Nasal [place] 50 Mcg/[place] 16 gm] 2 sprays NASL Q12 #1 inhaler Forms: Return to Work Referrals: FITO MUSE PA-C [Primary Care Provider] - Follow up as needed
[2017-07-14 21:52] VITALS: BP 125/75
== END 2017-07-14 21:53 | disposition home or self-care (01) ==
LOC: ER 16:40
DX: N12 Tubulo-interstitial nephritis, not specified as acute or chronic (principal); R09.81 Nasal congestion; R10.9 Unspecified abdominal pain; R50.9 Fever, unspecified; I48.91 Unspecified atrial fibrillation
CPT/HCPCS: 99284; 96361; 96374; 36415; 83690; 85025; 80053; 81001; 76380; J2270; J7030

== ENCOUNTER → 2017-07-27 | Outpatient (CLI) | payer OTHER | LOC: OD 15:05 | PROVIDERS: ATTEND Nurse Practitioner Acute Care | DX: R10.30 Lower abdominal pain, unspecified (principal) | CPT/HCPCS: 87086 ==

== ENCOUNTER → 2017-10-13 | Outpatient (CLI) | payer OTHER ==
[2017-10-13 15:33] LABS: ABSOLUTE EOSINOPHILS # (AUTO) 0.1 10^3/uL (0.0-0.6); ABSOLUTE LYMPHOCYTES (AUTO) 2.4 10^3/uL (0.5-4.7); ABSOLUTE MONOCYTES (AUTO) 0.5 10^3/uL (0.1-1.4); ABSOLUTE NEUT (AUTO) 4.4 10^3/uL (1.7-8.2); BASOPHILS % (AUTO) 0.7 % (0-2); EOSINOPHILS % (AUTO) 1.6 % (0-6); HEMATOCRIT 42.2 % (36.0-47.0); HEMOGLOBIN 14.4 g/dL (12.0-15.5); LYMPHOCYTES % (AUTO) 32.7 % (13-45); MEAN CORPUSCULAR HEMOGLOBIN 28.1 pg (27.0-33.4); MEAN CORPUSCULAR HGB CONC 34.1 g/dL (32.0-36.0); MEAN CORPUSCULAR VOLUME 83 fl (80-97); MONOCYTES % (AUTO) 6.5 % (3-13); PLATELET COUNT 358 10^3/uL (150-450); RED BLOOD COUNT 5.11 10^6/uL (3.72-5.28); RED CELL DISTRIBUTION WIDTH 13.5 % (11.5-14.0); SEGMENTED NEUTROPHILS % (AUTO) 58.5 % (42-78); TOTAL CELLS COUNTED % (AUTO) 100 %; WHITE BLOOD COUNT 7.5 10^3/uL (4.0-10.5)
[2017-10-13 15:49] LABS: ALANINE AMINOTRANSFERASE 41 U/L (9-52); ALBUMIN 4.7 g/dL (3.5-5.0); ALKALINE PHOSPHATASE 55 U/L (38-126); ANION GAP 14 (5-19); ASPARTATE AMINO TRANSFERASE 29 U/L (14-36); BILIRUBIN,DIRECT 0.3 mg/dL (0.0-0.4); BILIRUBIN,TOTAL 0.3 mg/dL (0.2-1.3); BLOOD UREA NITROGEN 12 mg/dL (7-20); CALCIUM 9.5 mg/dL (8.4-10.2); CARBON DIOXIDE 25 mmol/L (22-30); CHLORIDE 102 mmol/L (98-107); GLUCOSE 87 mg/dL (75-110); LIPASE 57.4 U/L (23-300); POTASSIUM 4.5 mmol/L (3.6-5.0); SODIUM 141.1 mmol/L (137-145); TOTAL PROTEIN 7.3 g/dL (6.3-8.2)
== END ==
LOC: OD 14:34
PROVIDERS: ATTEND Nurse Practitioner Acute Care
DX: M54.9 Dorsalgia, unspecified (principal); R10.11 Right upper quadrant pain
CPT/HCPCS: 36415; 80053; 83690; 84703; 85025

== ENCOUNTER → 2017-11-14 | Outpatient (CLI) | payer OTHER ==
--- NOTE | 2017-11-14 16:32 | RADIOLOGY REPORT (SQ) ---
EXAM DESCRIPTION: T SPINE AP/LAT COMPLETED DATE/TIME: 11/14/2017 2:47 pm REASON FOR STUDY: CHRONIC RT SIDED THORACIC BACK PAIN M54.6 PAIN IN THORACIC SPINE COMPARISON: None. NUMBER OF VIEWS: Two views. TECHNIQUE: AP and lateral radiographic images acquired of the thoracic spine. LIMITATIONS: None. FINDINGS: MINERALIZATION: Normal. ALIGNMENT: Normal. No scoliosis. VERTEBRAE: No fracture or bone lesion. Maintained height, normal segmentation. DISCS: No significant loss of height or significant narrowing. No large osteophytes. HARDWARE: None in the spine. MEDIASTINUM AND SOFT TISSUES: Normal heart size and aortic contour. No soft tissue abnormality. VISUALIZED LUNG ZACARIAS: Clear. OTHER: No other significant finding. IMPRESSION: NO SIGNIFICANT RADIOGRAPHIC FINDING IN THE THORACIC SPINE. TECHNICAL DOCUMENTATION: JOB ID: [id number] [employer]- All Rights Reserved Reading location - IP/workstation name: [email or web address]
== END ==
LOC: OD 14:03
PROVIDERS: ATTEND Nurse Practitioner Family
DX: M54.6 Pain in thoracic spine (principal)
CPT/HCPCS: 72070

== ENCOUNTER → 2018-01-03 | Outpatient (CLI) | payer OTHER | LOC: OD 14:50 | PROVIDERS: ATTEND Nurse Practitioner Acute Care | DX: N39.0 Urinary tract infection, site not specified (principal); R10.84 Generalized abdominal pain | CPT/HCPCS: 87086; 87088 ==

== ENCOUNTER 2018-05-19 18:44 | Emergency (ER) | payer OTHER ==
[2018-05-19] MEDS ORDERED: PROCHLORPERAZINE MALEATE 10 MG TABLET PO ONE (19:40)
[2018-05-19] MEDS ORDERED: DIPHENHYDRAMINE HCL 25 MG CAPSULE PO ONE (19:40)
[2018-05-19] MEDS ORDERED: NAPROXEN 250 MG TABLET PO ONE (19:40)
--- NOTE | 2018-05-19 19:45 | ER Document Report ---
ED Medical Screen (RME) - General Chief Complaint: Dizziness Stated Complaint: HEADACHE/DIZZINESS Time Seen by Provider: 05/19/18 19:33 Notes: This 37-year-old female patient comes emergency room with onset this morning of dizziness when she first woke up and was still laying in bed. She reported having dizzy episodes hitting 3 times and each 1 lasted only several seconds. She also noticed a headache developing, took some Advil which she usually does for her headaches, and she went to work. While at work she would feel faint occasionally, particularly if she would squat down to crab picker something. She works at [employer]. She also developed pain behind both ears going into her neck. She has noticed that her heart rate is beating fast. She takes metoprolol 50 mg about 5:00 in the morning for tachycardia. Prior ER visit documented atrial fibrillation, she has never heard that term before. She is not on antiplatelet therapy. Brief exam shows no nystagmus, TMs look normal, patient is tender to palpate the occipital region at the nuchal ridge in the upper posterior cervical muscles. She will be given Benadryl, Compazine, and Naprosyn. She will be moved to a room in the main emergency department for evaluation later to see if her symptoms improve and her heart rate returns to normal. I have greeted and performed a rapid initial assessment of this patient. A comprehensive ED assessment and evaluation of the patient, analysis of test results and completion of the medical decision making process will be conducted by additional ED providers. TRAVEL OUTSIDE OF THE [place] IN LAST 30 DAYS: No - Related Data Allergies/Adverse Reactions: No Known Allergies Allergy (Verified 07/14/17 16:41) Past Medical History - Social History Chew tobacco use (# tins/day): No Frequency of alcohol use: None Drug Abuse: None - Past Medical History Cardiac Medical History: Reports: Hx Atrial Fibrillation - possible Renal/ Medical History: Denies: Hx Peritoneal Dialysis Psychiatric Medical History: Reports: Hx Anxiety - Immunizations Hx Diphtheria, Pertussis, Tetanus Vaccination: Yes Physical Exam - Vital signs Vitals: Temp Pulse Resp BP Pulse Ox 98.2 F 130 H 16 130/88 H 99 05/19/18 18:52 05/19/18 18:52 05/19/18 18:52 05/19/18 18:52 05/19/18 18:52 Course - Vital Signs Vital signs: Temp Pulse Resp BP Pulse Ox 98.2 F 130 H 16 130/88 H 99 05/19/18 18:52 05/19/18 18:52 05/19/18 18:52 05/19/18 18:52 05/19/18 18:52 Doctor's Discharge - Discharge Referrals: CAT BARKER [employer]OR[employer]ED [employer]ING OFFICER [Primary Care Provider] - Follow up as needed
[2018-05-19] MEDS ORDERED: METOCLOPRAMIDE HCL INJ/PF 10 MG/2 ML SDV IV ONE (20:30)
[2018-05-19] MEDS ORDERED: NORMAL SALINE 1000 ML 1,000 ML IV ONE (20:30)
[2018-05-19] MEDS ORDERED: DIAZEPAM 2 MG TABLET PO ONE (21:12)
--- NOTE | 2018-05-19 21:27 | ER Document Report ---
ED General - General Chief Complaint: Dizziness Stated Complaint: HEADACHE/DIZZINESS Time Seen by Provider: 05/19/18 19:33 Notes: With a past medical history of tachycardia who presents with complaints of intermittent lightheadedness, headache, and palpitations. The patient reports that since waking up this morning she has felt somewhat lightheaded with positional changes when going from sitting to standing or when going from a bent over position to standing up. She states that it is a feeling of lightheadedness like she is about to pass out that resolves spontaneously. Episodes last for 15-20 seconds after onset and then completely go away. She has not tried to improve her symptoms. She states that shortly after waking up she developed a dull, throbbing, progressively worsening headache similar to headaches she has had in the past. She states that the headache is worse when she is standing and seems to mostly go away when she sits down. She denies associated weakness, numbness, fever or confusion. She has not contacted her primary care doctor regarding today's concerns. She has taken her metoprolol today as prescribed for her tachycardia. TRAVEL OUTSIDE OF THE [place] IN LAST 30 DAYS: No - Related Data Allergies/Adverse Reactions: No Known Allergies Allergy (Verified 07/14/17 16:41) Past Medical History - General Information source: Patient - Social History Smoking Status: Former Smoker Chew tobacco use (# tins/day): No Frequency of alcohol use: None Drug Abuse: None Lives with: Spouse/Significant other Family History: Reviewed & Not Pertinent Patient has suicidal ideation: No Patient has homicidal ideation: No - Past Medical History Cardiac Medical History: Reports: Hx Atrial Fibrillation - possible Renal/ Medical History: Denies: Hx Peritoneal Dialysis Psychiatric Medical History: Reports: Hx Anxiety - Immunizations Hx Diphtheria, Pertussis, Tetanus Vaccination: Yes Review of Systems - Review of Systems Notes: Constitutional: Negative for fever. HENT: Negative for sore throat. Eyes: Negative for visual changes. Cardiovascular: Positive for orthostasis and palpitations Respiratory: Negative for shortness of breath. Gastrointestinal: Negative for abdominal pain, vomiting or diarrhea. Genitourinary: Negative for dysuria. Musculoskeletal: Negative for back pain. Skin: Negative for rash. Neurological: Positive for headache 10 point ROS negative except as marked above and in HPI. Physical Exam - Vital signs Vitals: Temp Pulse Resp BP Pulse Ox 98.2 F 130 H 16 130/88 H 99 05/19/18 18:52 05/19/18 18:52 05/19/18 18:52 05/19/18 18:52 05/19/18 18:52 Interpretation: Tachycardic Notes: PHYSICAL EXAMINATION: GENERAL: Well-appearing, well-nourished and in no acute distress. HEAD: Atraumatic, normocephalic. EYES: Pupils equal round and reactive to light, extraocular movements intact, sclera anicteric, conjunctiva are normal. ENT: nares patent, oropharynx clear without exudates. Moderately dry membranes. NECK: Normal range of motion, supple without lymphadenopathy LUNGS: Breath sounds clear to auscultation bilaterally and equal. No wheezes rales or rhonchi. HEART: Regular tachycardia without murmurs ABDOMEN: Soft, nontender, normoactive bowel sounds. No guarding, no rebound. No masses appreciated. EXTREMITIES: Normal range of motion, no pitting or edema. No cyanosis. NEUROLOGICAL: Face symmetric. Tongue protrudes midline. Extraocular motions intact. Pupils are 2 mm and equally reactive. Normal speech, normal gait. 5 out of 5 strength in both the distal and proximal upper and lower extremities bilaterally. Sensation is grossly intact throughout. Finger to nose testing normal. Pronator drift normal. PSYCH: Normal mood, normal affect. SKIN: Warm, Dry, normal turgor, no rashes or lesions noted. Course - Re-evaluation Re-evalutation: 05/19/18 21:23 Patient presents with postural lightheadedness, tachycardia and an intermittent headache that is generally only present when she is standing. In regards to the patient's headache: Headache was not maximal in onset, patient has no focal neurologic deficits, no nuchal rigidity, vital signs within normal limits, no papilledema, and patient is overall well in appearance. Based on clinical history and examination I do not suspect an acute subarachnoid hemorrhage, dural venous sinus thrombosis, acute meningitis, or intercranial mass. Given my low clinical suspicion for any acute life-threatening etiology, I do not feel advanced neuro imaging is indicated at this point. The patient does have postural lightheadedness. She does have a known history of tachycardia for which she takes metoprolol and has taken today. She is initial heart rate was as high as 130 but is currently without intervention come down into the mid 90s. Will provide IV fluids, metoclopramide and reassess the patient. Basic laboratory's are pending. EKG without findings beyond sinus tachycardia. 05/19/18 23:57 Patient laboratory is are unremarkable. She has had resolution of all symptoms. Heart rate has normalized. She is able to go from a sitting to standing position with a heart rate increase of 10 versus 30 when she first arrived. No longer has lightheadedness or any headache. At this time will discharge with return precautions and follow-up recommendations. Verbal discharge instructions given a the bedside and opportunity for questions given. Medication warnings reviewed. Patient is in agreement with this plan and has verbalized understanding of return precautions and the need for primary care follow-up in the next 24-72 hours. - Vital Signs Vital signs: Temp Pulse Resp BP Pulse Ox 98.2 F 130 H 16 102/65 98 05/19/18 18:52 05/19/18 18:52 05/19/18 23:01 05/19/18 23:01 05/19/18 23:01 - Laboratory Result Diagrams: 05/19/18 19:08 05/19/18 19:08 Laboratory results interpreted by me: 05/19/18 05/19/18 19:08 19:08 RBC 5.41 H RDW 14.2 H Chloride 108 H - EKG Interpretation by Me Additional EKG results interpreted by me: 05/19/18 23:57 Sinus tachycardia. Rate 113. No ST elevations or depressions. QTC is 461. Discharge - Discharge Clinical Impression: Lightheadedness, Dehydration Headache Qualifiers: Headache type: unspecified Headache chronicity pattern: acute headache Intractability: not intractable Qualified Code(s): R51 - Headache Condition: Good Disposition: HOME, SELF-CARE Additional Instructions: You have been seen in the Emergency Department (ED) for a headache. Please use Tylenol (acetaminophen) or Motrin (ibuprofen) as needed for symptoms, but only as written on the box. As we have discussed, please follow up with your primary care doctor as soon as possible regarding today's ED visit and your headache symptoms. Call your doctor or return to the ED if you have a worsening headache, sudden and severe headache, confusion, slurred speech, facial droop, weakness or numbness in any arm or leg, extreme fatigue, or other symptoms that concern you. You were seen today for lightheadedness/dizziness. The exact cause of your symptoms is unclear, they may be secondary to dehydration given her response to fluids, but your workup here is reassuring without any concerning findings. Please follow closely with your primary care physician in the next 1-3 days. Return if you pass out, have additional episodes of lightheadedness, develop weakness/numbness, have persistent vomiting, chest pain, shortness of breath or any other symptoms that are concerning to you Referrals: CAT BARKER NP [NURSE PRACTITIONER] - Follow up in 3-5 days
[2018-05-19 21:29] LABS: ABSOLUTE BASOPHILS # (AUTO) 0.1 10^3/uL (0.0-0.2); ABSOLUTE EOSINOPHILS # (AUTO) 0.1 10^3/uL (0.0-0.6); ABSOLUTE LYMPHOCYTES (AUTO) 2.1 10^3/uL (0.5-4.7); ABSOLUTE MONOCYTES (AUTO) 0.5 10^3/uL (0.1-1.4); ABSOLUTE NEUT (AUTO) 7.5 10^3/uL (1.7-8.2); BASOPHILS % (AUTO) 0.8 % (0-2); EOSINOPHILS % (AUTO) 0.8 % (0-6); HEMOGLOBIN 15.3 g/dL (12.0-15.5); LYMPHOCYTES % (AUTO) 20.4 % (13-45); MEAN CORPUSCULAR HEMOGLOBIN 28.4 pg (27.0-33.4); MEAN CORPUSCULAR HGB CONC 34.1 g/dL (32.0-36.0); MEAN CORPUSCULAR VOLUME 83 fl (80-97); MONOCYTES % (AUTO) 4.8 % (3-13); PLATELET COUNT 358 10^3/uL (150-450); RED BLOOD COUNT 5.41 10^6/uL (3.72-5.28); RED CELL DISTRIBUTION WIDTH 14.2 % (11.5-14.0); SEGMENTED NEUTROPHILS % (AUTO) 73.2 % (42-78); TOTAL CELLS COUNTED % (AUTO) 100 %; WHITE BLOOD COUNT 10.2 10^3/uL (4.0-10.5)
[2018-05-19 21:52] LABS: ANION GAP 10 (5-19); BLOOD UREA NITROGEN 11 mg/dL (7-20); CALCIUM 9.3 mg/dL (8.4-10.2); CARBON DIOXIDE 25 mmol/L (22-30); CHLORIDE 108 mmol/L (98-107); GLUCOSE 94 mg/dL (75-110); POTASSIUM 3.9 mmol/L (3.6-5.0); SODIUM 142.6 mmol/L (137-145)
[2018-05-19 23:11] VITALS: BP 102/65
--- NOTE | 2018-05-20 08:03 | EKG REPORT ---
SEVERITY:- OTHERWISE NORMAL ECG - SINUS TACHYCARDIA : Confirmed by: Roro Langford MD 20-May-2018 08:02:40
== END 2018-05-19 23:55 | disposition home or self-care (01) ==
LOC: ER 18:44
DX: E86.0 Dehydration (principal); R51 Headache; R42 Dizziness and giddiness; R00.2 Palpitations; Z87.891 Personal history of nicotine dependence
CPT/HCPCS: 93005; 99284; 96361; 96374; 36415; 85025; 80048; 93010; J2765; J7030

== ENCOUNTER 2018-05-20 09:05 | Emergency (ER) | payer OTHER ==
--- NOTE | 2018-05-20 09:48 | ER Document Report ---
ED Medical Screen (RME) - General Chief Complaint: Near Syncope Stated Complaint: WEAKNESS Time Seen by Provider: 05/20/18 09:41 Notes: Patient says that she feels like she is going to pass out and has had a headache. Patient says that she started having her symptoms yesterday morning around 8 AM. She had a headache up until about an hour ago and now it is gone. She was also nauseated but not vomiting. She had pain in the back of her neck as well, although it did not affect her bending her head forward and backward. She was seen here last evening and had a normal CBC and Chem-12 and was hydrated with IV fluids and sent home. She says she still feeling the same way and feels as if she might pass out, although she has not done so. She is been a little congested in the back of her throat. Has not had any fever at home. No UTI symptoms. Patient is in good health except that she takes metoprolol for rapid heartbeat. TRAVEL OUTSIDE OF THE [place] IN LAST 30 DAYS: No - Related Data Allergies/Adverse Reactions: No Known Allergies Allergy (Verified 07/14/17 16:41) Past Medical History - Past Medical History Cardiac Medical History: Reports: Hx Atrial Fibrillation - possible Renal/ Medical History: Denies: Hx Peritoneal Dialysis Psychiatric Medical History: Reports: Hx Anxiety - Immunizations Hx Diphtheria, Pertussis, Tetanus Vaccination: Yes Physical Exam - Vital signs Vitals: Temp Pulse Resp BP Pulse Ox 99 F 107 H 18 123/75 100 05/20/18 09:11 05/20/18 09:11 05/20/18 09:11 05/20/18 09:11 05/20/18 09:11 Course - Vital Signs Vital signs: Temp Pulse Resp BP Pulse Ox 99 F 107 H 18 123/75 100 05/20/18 09:11 05/20/18 09:11 05/20/18 09:11 05/20/18 09:11 05/20/18 09:11 Doctor's Discharge - Discharge Referrals: CHARLY COBOS FNP-C [Primary Care Provider] - Follow up as needed
[2018-05-20 10:28] LABS: ABSOLUTE EOSINOPHILS # (AUTO) 0.1 10^3/uL (0.0-0.6); ABSOLUTE LYMPHOCYTES (AUTO) 1.7 10^3/uL (0.5-4.7); ABSOLUTE MONOCYTES (AUTO) 0.4 10^3/uL (0.1-1.4); ABSOLUTE NEUT (AUTO) 6.9 10^3/uL (1.7-8.2); BASOPHILS % (AUTO) 0.3 % (0-2); EOSINOPHILS % (AUTO) 0.6 % (0-6); HEMATOCRIT 46.9 % (36.0-47.0); LYMPHOCYTES % (AUTO) 18.6 % (13-45); MEAN CORPUSCULAR HEMOGLOBIN 28.4 pg (27.0-33.4); MEAN CORPUSCULAR HGB CONC 34.2 g/dL (32.0-36.0); MEAN CORPUSCULAR VOLUME 83 fl (80-97); MONOCYTES % (AUTO) 4.4 % (3-13); PLATELET COUNT 395 10^3/uL (150-450); RED BLOOD COUNT 5.64 10^6/uL (3.72-5.28); RED CELL DISTRIBUTION WIDTH 14.5 % (11.5-14.0); SEGMENTED NEUTROPHILS % (AUTO) 76.1 % (42-78); TOTAL CELLS COUNTED % (AUTO) 100 %; WHITE BLOOD COUNT 9.1 10^3/uL (4.0-10.5)
[2018-05-20 10:30] LABS: APPEARANCE,URINE CLEAR; BILIRUBIN,URINE NEGATIVE (NEGATIVE); COLOR,URINE COLORLESS; GLUCOSE, URINE NEGATIVE (NEGATIVE); KETONES,URINE TRACE mg/dL (NEGATIVE); LEUKOCYTE ESTERASE,URINE NEGATIVE (NEGATIVE); NITRITE,URINE NEGATIVE (NEGATIVE); PROTEIN,URINE NEGATIVE (NEGATIVE); URINE SPECIFIC GRAVITY 1.002; UROBILINOGEN,URINE NEGATIVE mg/dL (<2.0)
--- NOTE | 2018-05-20 10:45 | ER Document Report ---
ED General - General Chief Complaint: Near Syncope Stated Complaint: WEAKNESS Time Seen by Provider: 05/20/18 09:41 Information source: Patient Notes: 37-year-old female with the onset yesterday of some intermittent lightheadedness. When I discussed the patient's symptomatology she denies any and all symptoms of vertigo. Patient did feel some palpitations. Patient has a history of headaches as well as palpitations for which she takes metoprolol. Patient states she has been evaluated with a Holter monitor by cardiology "many times in the past". She states she has never been given a formal diagnosis of a dysrhythmia. She states she also has a history of anxiety. Patient states yesterday she was having some intermittent headaches with nausea. She states it was to the posterior aspect. She states the intensity was 6 out of 10 maximum. She had no blurry vision, neck pain, recent trauma, weakness or numbness to the arms or legs. She denies any and all headaches at this time. She has had no tinnitus and does not take high-dose aspirin. She denies any and all chest pain, leg swelling, recent trips or travel. TRAVEL OUTSIDE OF THE [place] IN LAST 30 DAYS: No - HPI Onset: Other - See above Onset/Duration: Gradual, Intermittent Quality of pain: Dull Severity: Mild Pain Level: Denies Associated symptoms: Other - See above Exacerbated by: Denies Relieved by: Denies Similar symptoms previously: Yes Recently seen / treated by doctor: Yes - Related Data Allergies/Adverse Reactions: No Known Allergies Allergy (Verified 07/14/17 16:41) Past Medical History - Social History Smoking Status: Unknown if Ever Smoked Family History: Reviewed & Not Pertinent Patient has suicidal ideation: No Patient has homicidal ideation: No - Past Medical History Cardiac Medical History: Reports: Hx Atrial Fibrillation - possible Renal/ Medical History: Denies: Hx Peritoneal Dialysis Psychiatric Medical History: Reports: Hx Anxiety - Immunizations Hx Diphtheria, Pertussis, Tetanus Vaccination: Yes Review of Systems - Review of Systems Constitutional: denies: Fever EENT: denies: Eye discharge, Nose discharge Cardiovascular: denies: Chest pain Respiratory: denies: Short of breath Gastrointestinal: denies: Vomiting Genitourinary: denies: Dysuria Musculoskeletal: denies: Leg swelling Skin: Other - no hives. denies: Rash Neurological/Psychological: Other - no slurred speech -: Yes All other systems reviewed and negative Physical Exam - Vital signs Vitals: Temp Pulse Resp BP Pulse Ox 99 F 107 H 18 123/75 100 05/20/18 09:11 05/20/18 09:11 05/20/18 09:11 05/20/18 09:11 05/20/18 09:11 Notes: Reviewed vital signs and nursing note as charted by RN. CONSTITUTIONAL: Alert and oriented and responds appropriately to questions. Well -appearing; well-nourished HEAD: Normocephalic; atraumatic EYES: PERRL; no nystagmus noted ENT: Normal nose; no rhinorrhea; moist mucous membranes; pharynx without lesions noted NECK: Supple without meningismus; non-tender; no cervical lymphadenopathy, no masses CARD: Regular rate and rhythm; no murmurs; symmetric distal pulses RESP: Normal chest excursion without splinting or tachypnea; breath sounds clear and equal bilaterally; no wheezes, no rhonchi, no rales ABD/GI: Normal bowel sounds; non-distended; soft, non-tender BACK: The back appears normal and is non-tender to palpation EXT: Normal ROM in all joints; non-tender to palpation; no edema SKIN: No acute lesions noted NEURO: CN 2-12 intact; 5/5 bilateral upper and lower extremity strength with sensation intact to light touch; normal cerebellar examination PSYCH: The patient's mood and manner are appropriate. Grooming and personal hygiene are appropriate. Course - Re-evaluation Re-evalutation: Given the history and physical examination we will order orthostatics, provide fluids, obtain a CBC and chemistry to check the patient's creatinine and hemoglobin level, obtain a urine test, and obtain a CT scan of the head given the repeat visit. I do believe subarachnoid hemorrhage, bacterial meningitis, temporal arteritis, acute angle-closure glaucoma, to all be unlikely at this time. 05/20/18 10:45 EKG shows a heart rate of 86, normal sinus rhythm, normal axis, no obvious ST elevation or depression. 05/20/18 13:32 Labs as recorded. 05/20/18 14:52 Labs as recorded. Orthostatics as recorded. Still no focal neurological deficits. CT scan of the head does not show any obvious intracranial masses. Liter of fluid has been provided. Vital signs are stable. Heart rate is 82. Patient will be discharged home with strict return precautions and follow-up with the primary care provider. - Vital Signs Vital signs: Temp Pulse Resp BP Pulse Ox 99 F 79 18 112/69 100 05/20/18 09:11 05/20/18 13:29 05/20/18 09:11 05/20/18 13:29 05/20/18 09:11 - Laboratory Result Diagrams: 05/20/18 09:55 05/20/18 09:55 Laboratory results interpreted by me: 05/20/18 05/20/18 05/20/18 09:50 09:55 09:55 RBC 5.64 H Hgb 16.0 H RDW 14.5 H Direct Bilirubin 0.6 H AST 44 H ALT < 6 L Urine Ketones TRACE H Discharge - Discharge Clinical Impression: Lightheaded, Palpitations Condition: Good Disposition: HOME, SELF-CARE Additional Instructions: Comeback immediately for any increased lightheadedness, pain, weakness or numbness, blurry vision, fevers, vomiting, or any other acute problems. Please follow-up with your primary care physician as we have discussed. Referrals: CHARLY COBOS FNP-C [Primary Care Provider] - Follow up as needed
[2018-05-20 10:49] LABS: ALANINE AMINOTRANSFERASE < 6 U/L (9-52); ALBUMIN 4.8 g/dL (3.5-5.0); ALKALINE PHOSPHATASE 110 U/L (38-126); ANION GAP 13 (5-19); ASPARTATE AMINO TRANSFERASE 44 U/L (14-36); BILIRUBIN,DIRECT 0.6 mg/dL (0.0-0.4); BILIRUBIN,TOTAL 0.8 mg/dL (0.2-1.3); BLOOD UREA NITROGEN 10 mg/dL (7-20); CALCIUM 9.5 mg/dL (8.4-10.2); CARBON DIOXIDE 24 mmol/L (22-30); CHLORIDE 107 mmol/L (98-107); GLUCOSE 104 mg/dL (75-110); POTASSIUM 4.2 mmol/L (3.6-5.0); SODIUM 143.9 mmol/L (137-145)
[2018-05-20] MEDS ORDERED: NORMAL SALINE 1000 ML 1,000 ML IV ONE ×2 (13:17)
--- NOTE | 2018-05-20 13:38 | RADIOLOGY REPORT (SQ) ---
EXAM DESCRIPTION: CT HEAD WITHOUT COMPLETED DATE/TIME: 05/20/2018 1:27 pm REASON FOR STUDY: 12; intermittent headaches COMPARISON: None. TECHNIQUE: Axial images acquired through the brain without intravenous contrast. Images reviewed wi th bone, brain and subdural windows. Additional sagittal and coronal reconstructions were generated. Images stored on PACS. All CT scanners at this facility use dose modulation, iterative reconstruction, and/or weight based d osing when appropriate to reduce radiation dose to as low as reasonably achievable (ALARA). [facility]: Dose Right [facility]: CareDose [facility]: Dose Right [facility]: Teradose 4D [facility]: Smart [employer] RADIATION DOSE: CT Rad equipment meets quality standard of care and radiation dose reduction techniq ues were employed. CTDIvol: 48.7 mGy. DLP: 1026 mGy-cm. mGy. LIMITATIONS: None. FINDINGS: VENTRICLES: Normal size and contour. CEREBRUM: No masses. No hemorrhage. No midline shift. No evidence for acute infarction. Normal gra y/white matter differentiation. No areas of low density in the white matter. CEREBELLUM: No masses. No hemorrhage. No alteration of density. No evidence for acute infarction. EXTRAAXIAL SPACES: No fluid collections. No masses. ORBITS AND GLOBE: No intra- or extraconal masses. Normal contour of globe without masses. CALVARIUM: No fracture. PARANASAL SINUSES: No fluid or mucosal thickening. SOFT TISSUES: No mass or hematoma. OTHER: No other significant finding. IMPRESSION: NORMAL BRAIN CT WITHOUT CONTRAST. EVIDENCE OF ACUTE STROKE: NO. COMMENT: Quality ID # [id number]: Final reports with documentation of one or more dose reduction techniques (e.g., Automated exposure control, adjustment of the mA and/or kV according to patient size, use of iterative reconstruction technique) TECHNICAL DOCUMENTATION: JOB ID: [id number] [employer]- All Rights Reserved Reading location - IP/workstation name: [email or web address]
[2018-05-20 15:15] VITALS: BP 108/80
--- NOTE | 2018-05-20 21:42 | EKG REPORT ---
SEVERITY:- NORMAL ECG - SINUS RHYTHM : Confirmed by: Roro Langford MD 20-May-2018 21:42:40
== END 2018-05-20 15:15 | disposition home or self-care (01) ==
LOC: ER 09:05
DX: R42 Dizziness and giddiness (principal); R51 Headache; R00.2 Palpitations; Z79.899 Other long term (current) drug therapy
CPT/HCPCS: 93005; 99284; 36415; 84443; 84703; 85025; 80053; 81001; 70450; 93010; J7030

== ENCOUNTER → 2018-07-18 | Outpatient (CLI) | payer OTHER | LOC: LAB 19:34 | PROVIDERS: ATTEND Nurse Practitioner Family | DX: R30.0 Dysuria (principal) | CPT/HCPCS: 87086 ==

== ENCOUNTER → 2018-10-19 | Outpatient (CLI) | payer OTHER ==
--- NOTE | 2018-10-19 12:19 | WOMENS IMAGING REPORT ---
EXAM DESCRIPTION: BILAT SCREENING MAMMO W/CAD COMPLETED DATE/TIME: 10/19/2018 10:30 am REASON FOR STUDY: Z12.31 ROUTINE BILATERAL SCREENING Z12.31 ENCNTR SCREEN MAMMOGRAM FOR MALIGNANT N EOPLASM OF LEILA COMPARISON: None. TECHNIQUE: Standard craniocaudal and mediolateral oblique views of each breast recorded using digita l acquisition. LIMITATIONS: None. FINDINGS: No masses, calcifications or architectural distortion. No areas of suspicion. Read with the assistance of CAD. .[place] - R2 Cenova Version 1.3 .[facility] - R2 Cenova Version 2.1 .[facility] - R2 Cenova Version 2.4 .[facility] R2 Cenova Version 2.4 .[facility] - R2 [employer] Engineer Version 9.2 IMPRESSION: NORMAL MAMMOGRAM. BIRADS 1. BREAST DENSITY: c. The breasts are heterogeneously dense, which may obscure small masses. BIRAD: 1 NEGATIVE RECOMMENDATION: ROUTINE SCREENING Please consider bilateral screening tomosynthesis in September 2019, given heterogeneously dense bilatera l breast tissue COMMENT: The patient has been notified of the results by letter per SA requirements. Additional no tification policies are in place for contacting patient with suspicious or incomplete findings. Quality ID #[id number]: The [employer] recommends an annual screening mammogram for women aged 40 years or over. This facility utilizes a reminder system to ensure that all patients receive reminder letters, and/or direct phone calls for appointments. This includes reminders for routine scr eening mammograms, diagnostic mammograms, or other Breast Imaging Interventions when appropriate. Th is patient will be placed in the appropriate reminder system. TECHNICAL DOCUMENTATION: FINDING NUMBER: (1) ASSESSMENT: (1) JOB ID: [id number] [employer]- All Rights Reserved Reading location - IP/workstation name: [email or web address]
== END ==
LOC: WI 10:18
PROVIDERS: ATTEND Nurse Practitioner Family
DX: Z12.31 Encounter for screening mammogram for malignant neoplasm of breast (principal)
CPT/HCPCS: 77067

== ENCOUNTER → 2018-12-01 | Outpatient (CLI) | payer OTHER ==
--- NOTE | 2018-12-01 13:22 | RADIOLOGY REPORT (SQ) ---
EXAM DESCRIPTION: T SPINE AP/LAT COMPLETED DATE/TIME: 12/01/2018 12:36 pm REASON FOR STUDY: STRAIN OF MUSCLE AND TENDON OF BACK WALL OF THORAX, INIT S29.012A STRAIN OF MUSCL E AND TENDON OF BACK WALL OF THORAX, COMPARISON: None. NUMBER OF VIEWS: Two views. TECHNIQUE: AP and lateral radiographic images acquired of the thoracic spine. LIMITATIONS: None. FINDINGS: MINERALIZATION: Normal. ALIGNMENT: Normal. No scoliosis. VERTEBRAE: No fracture or bone lesion. Maintained height, normal segmentation. DISCS: No significant loss of height or significant narrowing. No large osteophytes. HARDWARE: None in the spine. MEDIASTINUM AND SOFT TISSUES: Normal heart size and aortic contour. No soft tissue abnormality. VISUALIZED LUNG ZACARIAS: Clear. OTHER: No other significant finding. IMPRESSION: NO SIGNIFICANT RADIOGRAPHIC FINDING IN THE THORACIC SPINE. TECHNICAL DOCUMENTATION: JOB ID: [id number] [employer]- All Rights Reserved Reading location - IP/workstation name: [email or web address]
== END ==
LOC: OD 12:04
PROVIDERS: ATTEND Nurse Practitioner Family
DX: S29.012A Strain of muscle and tendon of back wall of thorax, initial encounter (principal); X58.XXXA Exposure to other specified factors, initial encounter
CPT/HCPCS: 72070

== ENCOUNTER 2018-12-07 09:00 | Emergency (ER) | payer OTHER ==
[2018-12-07] MEDS ORDERED: ONDANSETRON HCL INJ/PF 4 MG/2 ML SDV IV ONE (09:17)
[2018-12-07] MEDS ORDERED: NORMAL SALINE 1000 ML 1,000 ML IV ONE (09:17)
--- NOTE | 2018-12-07 09:19 | ER Document Report ---
ED Medical Screen (RME) - General Chief Complaint: Epigastric Pain Stated Complaint: CHEST PAIN Time Seen by Provider: 12/07/18 09:15 Primary Care Provider: GERBER GREY NP [Primary Care Provider] - Follow up as needed Mode of Arrival: Ambulatory Information source: Patient Notes: 38-year-old female presented to ED for complaint of epigastric pain times a week radiating through to the back between her shoulder blades. She states she has had nausea. Her last menstrual period started on 12/03/2018. She states the pain is not severe at this moment but it does get pretty bad at times. She states she went to an urgent care and they told her they thought it might be anxiety or back pain did x-rays which were negative. She states the last time she is eaten or drinking anything was some coffee at 6:00 this morning has not had any food today. Patient is alert oriented respirations regular and unlabored lungs are clear to auscultation bowel sounds are present. I have greeted and performed a rapid initial assessment of this patient. A comprehensive ED assessment and evaluation of the patient, analysis of test results and completion of medical decision making process will be conducted by an additional ED providers. Dictation of this chart was performed using voice recognition software; therefore, there may be some unintended grammatical errors. TRAVEL OUTSIDE OF THE [place] IN LAST 30 DAYS: No - Related Data Allergies/Adverse Reactions: No Known Allergies Allergy (Verified 12/07/18 09:02) Past Medical History - Past Medical History Cardiac Medical History: Reports: Hx Atrial Fibrillation - possible Renal/ Medical History: Denies: Hx Peritoneal Dialysis Psychiatric Medical History: Reports: Hx Anxiety - Immunizations Hx Diphtheria, Pertussis, Tetanus Vaccination: Yes Physical Exam - Vital signs Vitals: Temp Pulse Resp BP Pulse Ox 98.1 F 98 14 131/89 H 99 12/07/18 09:05 12/07/18 09:05 12/07/18 09:05 12/07/18 09:05 12/07/18 09:05 Course - Vital Signs Vital signs: Temp Pulse Resp BP Pulse Ox 98.1 F 98 14 131/89 H 99 12/07/18 09:05 12/07/18 09:05 12/07/18 09:05 12/07/18 09:05 12/07/18 09:05 Doctor's Discharge - Discharge Referrals: GERBER GREY, [facility]MI[facility] [Primary Care Provider] - Follow up as needed
[2018-12-07 10:03] LABS: ABSOLUTE BASOPHILS # (AUTO) 0.1 10^3/uL (0.0-0.2); ABSOLUTE EOSINOPHILS # (AUTO) 0.2 10^3/uL (0.0-0.6); ABSOLUTE LYMPHOCYTES (AUTO) 2.2 10^3/uL (0.5-4.7); ABSOLUTE MONOCYTES (AUTO) 0.5 10^3/uL (0.1-1.4); ABSOLUTE NEUT (AUTO) 5.9 10^3/uL (1.7-8.2); BASOPHILS % (AUTO) 1.3 % (0-2); EOSINOPHILS % (AUTO) 1.9 % (0-6); HEMATOCRIT 46.7 % (36.0-47.0); HEMOGLOBIN 15.8 g/dL (12.0-15.5); LYMPHOCYTES % (AUTO) 24.9 % (13-45); MEAN CORPUSCULAR HEMOGLOBIN 28.7 pg (27.0-33.4); MEAN CORPUSCULAR HGB CONC 33.9 g/dL (32.0-36.0); MEAN CORPUSCULAR VOLUME 85 fl (80-97); MONOCYTES % (AUTO) 5.2 % (3-13); PLATELET COUNT 364 10^3/uL (150-450); RED BLOOD COUNT 5.51 10^6/uL (3.72-5.28); RED CELL DISTRIBUTION WIDTH 13.8 % (11.5-14.0); SEGMENTED NEUTROPHILS % (AUTO) 66.7 % (42-78); TOTAL CELLS COUNTED % (AUTO) 100 %; WHITE BLOOD COUNT 8.9 10^3/uL (4.0-10.5)
[2018-12-07 10:09] LABS: APPEARANCE,URINE CLEAR; BILIRUBIN,URINE NEGATIVE (NEGATIVE); COLOR,URINE YELLOW; GLUCOSE, URINE NEGATIVE (NEGATIVE); KETONES,URINE NEGATIVE (NEGATIVE); LEUKOCYTE ESTERASE,URINE NEGATIVE (NEGATIVE); NITRITE,URINE NEGATIVE (NEGATIVE); PROTEIN,URINE NEGATIVE (NEGATIVE); URINE SPECIFIC GRAVITY 1.015; UROBILINOGEN,URINE NEGATIVE mg/dL (<2.0)
--- NOTE | 2018-12-07 10:09 | ER Document Report ---
ED General - General Chief Complaint: Epigastric Pain Stated Complaint: CHEST PAIN Time Seen by Provider: 12/07/18 09:15 Primary Care Provider: GERBER GREY NP [NO LOCAL MD] - Follow up as needed Mode of Arrival: Ambulatory Notes: 38-year-old female presents to ED for complaint of epigastric pain radiating through to the back between her shoulder blades. She states she has had nausea. LMP 12/03/2018. She says the pain is directly in the center of her back, sharp and severe, absent flows, and is not currently severe. She states she went to an urgent care and they told her they thought it might be anxiety or back pain, did x-rays, and they were negative. She states the last time she is eaten or drinking anything was some coffee at 6:00 this morning has not had any food today. She denies any fevers or recent illness, dyspnea on exertion, shortness of breath, diaphoresis, nausea, denies radiation of pain into her arms or neck, denies abdominal pain, denies vomiting or diarrhea, denies urinary symptoms. TRAVEL OUTSIDE OF THE [place] IN LAST 30 DAYS: No - Related Data Allergies/Adverse Reactions: No Known Allergies Allergy (Verified 12/07/18 09:02) Past Medical History - General Information source: Patient - Social History Smoking Status: Current Every Day Smoker Frequency of alcohol use: None Drug Abuse: None Family History: Reviewed & Not Pertinent Patient has suicidal ideation: No Patient has homicidal ideation: No - Past Medical History Cardiac Medical History: Reports: Hx Atrial Fibrillation - possible Renal/ Medical History: Denies: Hx Peritoneal Dialysis Psychiatric Medical History: Reports: Hx Anxiety - Immunizations Hx Diphtheria, Pertussis, Tetanus Vaccination: Yes Review of Systems - Review of Systems Constitutional: See HPI EENT: No symptoms reported Cardiovascular: See HPI Respiratory: See HPI Gastrointestinal: See HPI Genitourinary: See HPI Female Genitourinary: No symptoms reported Musculoskeletal: No symptoms reported Skin: No symptoms reported Hematologic/Lymphatic: No symptoms reported Neurological/Psychological: No symptoms reported Physical Exam - Vital signs Vitals: Temp Pulse Resp BP Pulse Ox 98.1 F 98 14 131/89 H 99 12/07/18 09:05 12/07/18 09:05 12/07/18 09:05 12/07/18 09:05 12/07/18 09:05 - Notes Notes: PHYSICAL EXAMINATION: Reviewed vital signs and charting by RN GENERAL: Alert, interacts well. No acute distress. HEAD: Normocephalic, atraumatic. EYES: Pupils equal and round. Extraocular movements intact. ENT: Oral mucosa moist, tongue midline. NECK: Full range of motion. Trachea midline. LUNGS: Clear to auscultation bilaterally, no wheezes, rales, or rhonchi. No respiratory distress. HEART: Regular rate and rhythm. No murmur ABDOMEN: soft, non-tender. No distention. Bowel sounds present EXTREMITIES: Moves all 4 extremities spontaneously. No edema, No cyanosis. PSYCH: Normal affect, normal mood. SKIN: Warm, dry, normal turgor. No rashes or lesions noted. Course - Re-evaluation Re-evalutation: 12/07/18 11:18 Well-appearing. Patient appears mildly anxious. All lab work has returned and there is no evidence of electrolyte derangements. Urinalysis do not show ev idence of UTI. Initial troponin negative. Heart score 0. Will obtain a delta troponin and pending results will most likely discharge home with follow-up with primary care. I have a very low suspicion at this time for cardiac etiology to include ACS, aortic dissection, aortic aneurysm, or PE. 12/07/18 13:48 Presentation of chest pain in an otherwise well appearing patient. Low clinical suspicion for ACS given clinical history, exam, EKG without ST elevations or depressions, and negative initial troponin. HEART score less than or equal to 3. PE also seems unlikely given clinical history, absence of tachycardia or dyspnea. Patient is PERC criteria negative. CXR without evidence of pneumothorax or pneumonia. No widened mediastinum. Aortic dissection also seems unlikely given history, symmetric pulses, CXR, and vitals. - Vital Signs Vital signs: Temp Pulse Resp BP Pulse Ox 98.1 F 98 14 131/89 H 99 12/07/18 09:05 12/07/18 09:05 12/07/18 09:05 12/07/18 09:05 12/07/18 09:05 - Laboratory Result Diagrams: 12/07/18 09:33 12/07/18 09:33 Laboratory results interpreted by me: 12/07/18 12/07/18 09:33 09:33 RBC 5.51 H Hgb 15.8 H Urine Blood SMALL H Discharge - Discharge Clinical Impression: Chest pain Qualifiers: Chest pain type: unspecified Qualified Code(s): R07.9 - Chest pain, unspecified Condition: Good Disposition: HOME, SELF-CARE Additional Instructions: You were seen today for chest pain. The exact cause of your pain is unclear. However, based on your cardiac enzyme testing, chest x-ray, and EKG it does not appear that it is from an immediately life-threatening cause at this time. Although your testing here is normal is critical that you follow-up with your primary care physician for continued evaluation of this chest pain and possible stress testing. I recommended you see your physician within the next 24-48 hours to be evaluated for consideration of a stress test. Please return to emergency department immediately if you have worsening of your chest pain, shortness of breath, vomiting, become unable to exert yourself due to pain or difficulty breathing, you pass out, or have any pain that radiates into your arms, jaw, or back. Please also return if you have any additional symptoms that are concerning to you. Referrals: GERBER GREY NP [NO LOCAL MD] - Follow up as needed
[2018-12-07 10:18] LABS: ALANINE AMINOTRANSFERASE 16 U/L (9-52); ALBUMIN 4.7 g/dL (3.5-5.0); ALKALINE PHOSPHATASE 55 U/L (38-126); ANION GAP 7 (5-19); ASPARTATE AMINO TRANSFERASE 19 U/L (14-36); BILIRUBIN,DIRECT 0.3 mg/dL (0.0-0.4); BILIRUBIN,TOTAL 0.4 mg/dL (0.2-1.3); BLOOD UREA NITROGEN 11 mg/dL (7-20); CALCIUM 9.5 mg/dL (8.4-10.2); CARBON DIOXIDE 28 mmol/L (22-30); CHLORIDE 105 mmol/L (98-107); GLUCOSE 89 mg/dL (75-110); LIPASE 90.4 U/L (23-300); POTASSIUM 4.4 mmol/L (3.6-5.0); SODIUM 140.4 mmol/L (137-145); TOTAL PROTEIN 7.8 g/dL (6.3-8.2)
--- NOTE | 2018-12-07 11:35 | RADIOLOGY REPORT (SQ) ---
EXAM DESCRIPTION: U/S ABDOMEN LIMITED W/O DOP COMPLETED DATE/TIME: 12/07/2018 11:22 am REASON FOR STUDY: epigastric pain radiates to back COMPARISON: None. TECHNIQUE: Dynamic and static grayscale images acquired of the abdomen and recorded on PACS. Additio nal selected color Doppler and spectral images recorded. LIMITATIONS: None. FINDINGS: PANCREAS: No masses. Visualized pancreatic duct normal caliber. LIVER: No masses. Echotexture normal. LIVER VASCULATURE: Normal directional flow of the main portal vein and hepatic veins. GALLBLADDER: No stones. Normal wall thickness. No pericholecystic fluid. ULTRASOUND-DETECTED CONTRERAS'S SIGN: Negative. INTRAHEPATIC DUCTS AND COMMON DUCT: CBD and intrahepatic ducts normal caliber. No filling defects. INFERIOR VENA CAVA: Normal flow. AORTA: No aneurysm. RIGHT KIDNEY: Normal size. Normal echogenicity. No solid or suspicious masses. No hydronephrosis. No calcifications. PERITONEAL AND RIGHT PLEURAL SPACE: No ascites or effusions. OTHER: No other significant findings. IMPRESSION: No ultrasound abnormality of the right upper quadrant to explain pain. Consider CT or M RI to further evaluate unexplained abdominal pain. TECHNICAL DOCUMENTATION: JOB ID: [id number] [employer]- All Rights Reserved Reading location - IP/workstation name: [email or web address]
--- NOTE | 2018-12-07 12:50 | EKG REPORT ---
SEVERITY:- NORMAL ECG - SINUS RHYTHM : Confirmed by: Vu Lynch MD 07-Dec-2018 12:49:34
[2018-12-07 14:37] VITALS: BP 117/84
== END 2018-12-07 14:35 | disposition home or self-care (01) ==
LOC: ER 09:00
DX: R07.9 Chest pain, unspecified (principal); R10.13 Epigastric pain; R11.0 Nausea; F17.200 Nicotine dependence, unspecified, uncomplicated
CPT/HCPCS: 93005; 99285; 96360; 36415; 83690; 84703; 85025; 80053; 81001; 84484; 76705; 93010; J7030; J2405

== ENCOUNTER → 2019-03-28 | Outpatient (CLI) | payer OTHER | LOC: OD 13:42 | PROVIDERS: ATTEND Nurse Practitioner Acute Care | DX: R35.0 Frequency of micturition (principal) | CPT/HCPCS: 87086; 87088 ==

== ENCOUNTER → 2019-07-04 | Outpatient (CLI) | payer OTHER ==
--- NOTE | 2019-07-04 14:32 | RADIOLOGY REPORT (SQ) ---
EXAM DESCRIPTION: KNEE RIGHT 4 VIEWS COMPLETED DATE/TIME: 07/04/2019 2:10 pm REASON FOR STUDY: ACUTE PAIN OF RT KNEE M25.561 PAIN IN RIGHT KNEE COMPARISON: None. NUMBER OF VIEWS: Four views. TECHNIQUE: AP, lateral and oblique views of the right knee were obtained. LIMITATIONS: None. FINDINGS: MINERALIZATION: Normal. BONES: Osteochondroma. There is no fracture or dislocation. JOINT: No effusion. SOFT TISSUES: No prepatellar soft tissue swelling. The quadriceps and patellar tendon silhouettes ar e intact. OTHER: No other finding. IMPRESSION: 1. No acute osseous abnormality of the right knee. 2. Osteochondroma that projects from the metadiaphyseal region of the proximal tibia. TECHNICAL DOCUMENTATION: JOB ID: [id number] [employer]- All Rights Reserved Reading location - IP/workstation name: [email or web address]
== END ==
LOC: OD 13:52
PROVIDERS: ATTEND Nurse Practitioner Family
DX: D16.21 Benign neoplasm of long bones of right lower limb (principal); M25.561 Pain in right knee

== ENCOUNTER 2020-04-11 12:15 | Emergency (ER) | payer OTHER ==
--- NOTE | 2020-04-11 12:45 | ER Document Report ---
ED Medical Screen (RME) - General Chief Complaint: Dizziness Stated Complaint: LIGHTHEADED,COUGH,PALPATATIONS Time Seen by Provider: 04/11/20 12:40 Primary Care Provider: DANIAL NAYLOR FNP-C [Primary Care Provider] - Follow up as needed Mode of Arrival: Wheelchair Information source: Patient Notes: 39-year-old female presented to ED for complaint of lightheadedness since Tuesday. She states she is also had intermittent rapid heartbeat. She states when the rapid heartbeat and the lightheadedness developed she also gets pain in both shoulders and sometimes some pain in the right side of the neck. She states she has had no appetite at all as well. She states she has been told she had a rapid heartbeat in the past. She is they told her there was a nerve in her heart sometimes will just fire off when he was not supposed to. She does have a history of anxiety and depression. She does smoke 1-1/2 to 2 packs/day but does not drink or use any illicit drugs. She is alert oriented respirations regular nonlabored at this time. We have done a chest pain protocol. I have greeted and performed a rapid initial assessment of this patient. A comprehensive ED assessment and evaluation of the patient, analysis of test results and completion of medical decision making process will be conducted by an additional ED providers. TRAVEL OUTSIDE OF THE [place] IN LAST 30 DAYS: No - Related Data Allergies/Adverse Reactions: No Known Allergies Allergy (Verified 12/07/18 09:02) Past Medical History - Social History Frequency of alcohol use: None Drug Abuse: None - Past Medical History Cardiac Medical History: Reports: Hx Atrial Fibrillation - possible Renal/ Medical History: Denies: Hx Peritoneal Dialysis Psychiatric Medical History: Reports: Hx Anxiety - Immunizations Hx Diphtheria, Pertussis, Tetanus Vaccination: Yes Physical Exam - Vital signs Vitals: Temp Pulse Resp BP Pulse Ox 97.9 F 115 H 16 134/86 H 98 04/11/20 12:24 04/11/20 12:24 04/11/20 12:24 04/11/20 12:24 04/11/20 12:24 Course - Vital Signs Vital signs: Temp Pulse Resp BP Pulse Ox 97.9 F 115 H 16 134/86 H 98 04/11/20 12:24 04/11/20 12:24 04/11/20 12:24 04/11/20 12:24 04/11/20 12:24 Doctor's Discharge - Discharge Referrals: DANIAL NAYLOR MATERIAL CUTTER-C [Primary Care Provider] - Follow up as needed
[2020-04-11 13:11] LABS: ABSOLUTE BASOPHILS # (AUTO) 0.1 10^3/uL (0.0-0.2); ABSOLUTE EOSINOPHILS # (AUTO) 0.1 10^3/uL (0.0-0.6); ABSOLUTE MONOCYTES (AUTO) 0.5 10^3/uL (0.1-1.4); ABSOLUTE NEUT (AUTO) 6.6 10^3/uL (1.7-8.2); BASOPHILS % (AUTO) 0.7 % (0-2); EOSINOPHILS % (AUTO) 1.2 % (0-6); HEMOGLOBIN 17.3 g/dL (12.0-15.5); LYMPHOCYTES % (AUTO) 21.8 % (13-45); MEAN CORPUSCULAR HEMOGLOBIN 29.5 pg (27.0-33.4); MEAN CORPUSCULAR HGB CONC 34.7 g/dL (32.0-36.0); MEAN CORPUSCULAR VOLUME 85 fl (80-97); MONOCYTES % (AUTO) 5.2 % (3-13); PLATELET COUNT 385 10^3/uL (150-450); RED BLOOD COUNT 5.89 10^6/uL (3.72-5.28); RED CELL DISTRIBUTION WIDTH 14.2 % (11.5-14.0); SEGMENTED NEUTROPHILS % (AUTO) 71.1 % (42-78); TOTAL CELLS COUNTED % (AUTO) 100 %; WHITE BLOOD COUNT 9.3 10^3/uL (4.0-10.5)
[2020-04-11 13:23] LABS: ALBUMIN 4.6 g/dL (3.5-5.0); ALKALINE PHOSPHATASE 64 U/L (38-126); ANION GAP 9 (5-19); ASPARTATE AMINO TRANSFERASE 25 U/L (14-36); BILIRUBIN,DIRECT 0.3 mg/dL (0.0-0.4); BILIRUBIN,TOTAL 0.6 mg/dL (0.2-1.3); BLOOD UREA NITROGEN 8 mg/dL (7-20); CALCIUM 9.2 mg/dL (8.4-10.2); CARBON DIOXIDE 25 mmol/L (22-30); CHLORIDE 105 mmol/L (98-107); GLUCOSE 101 mg/dL (75-110); POTASSIUM 4.5 mmol/L (3.6-5.0); TOTAL PROTEIN 7.7 g/dL (6.3-8.2)
--- NOTE | 2020-04-11 13:33 | RADIOLOGY REPORT (SQ) ---
EXAM DESCRIPTION: CHEST 2 VIEWS IMAGES COMPLETED DATE/TIME: 04/11/2020 1:09 pm REASON FOR STUDY: Palpitations COMPARISON: 09/13/2016 EXAM PARAMETERS: NUMBER OF VIEWS: two views TECHNIQUE: Digital Frontal and Lateral radiographic views of the chest acquired. RADIATION DOSE: NA LIMITATIONS: none FINDINGS: LUNGS AND PLEURA: Linear left lingular opacities, likely atelectasis. No focal consolidat ion. No pleural effusion or pneumothorax. MEDIASTINUM AND HILAR STRUCTURES: No masses or contour abnormalities. HEART AND VASCULAR STRUCTURES: Heart normal size. No evidence for failure. BONES: No acute findings. HARDWARE: None in the chest. OTHER: No other significant finding. IMPRESSION: Mild linear left basilar opacities, likely atelectasis. TECHNICAL DOCUMENTATION: JOB ID: [id number] 2010 [employer]- All Rights Reserved Reading location - IP/workstation name: [email or web address]
[2020-04-11 16:18] VITALS: BP 108/69
--- NOTE | 2020-04-11 18:14 | ER Document Report ---
Entered by PRIMITIVO OTTO SCRIBE 04/11/20 1513 Acting as scribe for:ALBINA MCLAUGHLIN MD ED General - General Chief Complaint: Dizziness Stated Complaint: LIGHTHEADED,COUGH,PALPATATIONS Time Seen by Provider: 04/11/20 12:40 Primary Care Provider: DANIAL NAYLOR FNP-C [NURSE PRACTITIONER] - Follow up as needed Mode of Arrival: Wheelchair Information source: Patient Notes: This 39 year old female patient presents to the emergency department today with complaints of feeling lightheaded off and on since tuesday, bilateral lateral shoulder pain, and a chronic cough for months due to heavy cigarette smoking. Patient reports that she looked up "symptoms of a female heart attack" and her symptoms seem to match watch she read on google. She mentions that last night she went to bed at 11:00 PM and woke up at 8:00 AM "still tired". She denies fevers, change in taste/smell, or dizziness. She also notices that she has occasional heartburn. Patient has not taken anything for her occasional heartburn. She does recall wearing a Holter monitor possibly 10 years ago but does not know what the results were. She does not know for certain if the tachycardias she has have ever been caught on a monitor strip. TRAVEL OUTSIDE OF THE [place] IN LAST 30 DAYS: No - Related Data Allergies/Adverse Reactions: No Known Allergies Allergy (Verified 12/07/18 09:02) Past Medical History - General Information source: Patient - Social History Smoking Status: Current Every Day Smoker Cigarette use (# per day): Yes - 2 ppd Chew tobacco use (# tins/day): No Smoking Education Provided: No Frequency of alcohol use: None Drug Abuse: None Occupation: Not employed Lives with: Family Family History: CVA - paternal grandfather CVA in 60s, heavy smoker Patient has homicidal ideation: No - Past Medical History Cardiac Medical History: Reports: Other - Intermittent tachycardia, takes metoprolol ER Psychiatric Medical History: Reports: Hx Anxiety Surgical Hx: Negative - Immunizations Hx Diphtheria, Pertussis, Tetanus Vaccination: Yes Review of Systems - Review of Systems Constitutional: denies: Fever EENT: No symptoms reported Cardiovascular: See HPI, Lightheaded. denies: Dizziness Respiratory: See HPI, Cough Gastrointestinal: See HPI, Other - GERD Genitourinary: No symptoms reported Female Genitourinary: No symptoms reported Musculoskeletal: See HPI, Joint pain - bilateral shoulders Skin: No symptoms reported Hematologic/Lymphatic: No symptoms reported Neurological/Psychological: No symptoms reported -: Yes All other systems reviewed and negative Physical Exam - Vital signs Vitals: Temp Pulse Resp BP Pulse Ox 97.9 F 115 H 16 134/86 H 98 04/11/20 12:24 04/11/20 12:24 04/11/20 12:24 04/11/20 12:24 04/11/20 12:24 - Notes Notes: Physical Exam: General: Alert, appears well. HEENT: Normocephalic. Atraumatic. PERRL. Extraocular movements intact. Oropharynx clear. Neck: Supple. Non-tender. Respiratory: No respiratory distress. Clear and equal breath sounds bilaterally. Cardiovascular: Regular rate and rhythm, heart rate between 80s Abdominal: Normal Inspection. Non-tender, no epigastric tenderness to palpation. No distension. Normal Bowel Sounds. Back: No gross abnormalities. Extremities: Moves all four extremities. Upper extremities: Normal inspection. Normal ROM. Lower extremities: bilateral lateral shoulder tenderness to palpation Neurological: Normal cognition. AAOx4. Normal speech. Psychological: Normal affect. Normal Mood. Skin: Warm. Dry. Normal color. Course - Re-evaluation Re-evalutation: 04/11/20 15:51 Patient reports that the only medication she takes is metoprolol. Reviewing pharmacy records shows that she did fill in Effexor prescription on 12/30/2019 for 90 tablets which would have lasted until about 2 weeks ago. 04/11/20 15:54 D-dimer is not elevated. Troponin is undetectable. Chest x-ray shows some left basilar atelectasis. EKG is normal other than heart rate of 101. Her heart rate actually goes up and down. At this time it is 84. I noted before when I walked into the room it goes up. - Vital Signs Vital signs: Temp Pulse Resp BP Pulse Ox 97.9 F 115 H 17 113/84 96 04/11/20 12:24 04/11/20 12:24 04/11/20 15:01 04/11/20 15:01 04/11/20 15:01 - Laboratory Result Diagrams: 04/11/20 12:49 04/11/20 12:49 Laboratory results interpreted by me: 04/11/20 04/11/20 12:49 12:49 RBC 5.89 H Hgb 17.3 H Hct 50.0 H RDW 14.2 H Magnesium 2.4 H - Diagnostic Test Radiology reviewed: Image reviewed, Reports reviewed - Chest x-ray shows mild linear basilar opacities, most likely atelectasis. - EKG Interpretation by Me EKG shows normal: Sinus rhythm, [place], Intervals, QRS Complexes, ST-T Waves Rate: Tachycardia - 101 Discharge - Discharge Clinical Impression: Tachycardia, Light-headed feeling Shoulder pain, bilateral Qualifiers: Chronicity: acute Qualified Code(s): M25.511 - Pain in right shoulder; M25.512 - Pain in left shoulder Fatigue Qualifiers: Fatigue type: unspecified Qualified Code(s): R53.83 - Other fatigue GERD (gastroesophageal reflux disease) Qualifiers: Esophagitis presence: without esophagitis Qualified Code(s): K21.9 - Gastro- esophageal reflux disease without esophagitis Condition: Stable Disposition: HOME, SELF-CARE Additional Instructions: Palpitations (Irregular/Rapid Heartrate): Irregular or rapid heartbeat is called "palpitation." To diagnose the cause of palpitation, we have to "catch it in the act" with an EKG. Sinus Tachycardia: This is a rapid (but NORMAL) rhythm that can be due to fever, pain, anxiety, lack of sleep, over-exertion, or drugs. Cold medications, caffeine, and diet pills are particularly likely to cause tachycardia. Usually, all that's required is rest, reassurance, and avoiding caffeine, alcohol, nicotine, and unnecessary medicines. Paroxysmal Atrial Tachycardia (PAT): This abnormally rapid heartbeat is caused by a "short circuit" in the electrical system of the heart. It is not dangerous, unless other heart disease is present. These attacks of PAT may occur occasionally for years. Medication is available for treatment. Paroxysmal Atrial Fibrillation or Atrial Flutter: This is irregular electrical activity in the upper heart chamber. These abnormal rhythms often occur with valve disease or in hearts damaged by hardening of the arteries. These rhythms usually require further testing, for example a cardiac echo. Premature Beats: Extra beats occur more commonly after caffeine, nicotine, alcohol, cold pills, diet pills. Emotional stress or fatigue also provoke them. Extra beats are only dangerous when heart disease is present. They usually need no treatment. If they're frequent, or if evidence of heart disease develops, medication can be given to suppress them. If we were unable to "catch" the palpitations on EKG, you should try to get an EKG immediately if the symptoms begin again. Contact the physician at once if you develop persistent lightheadedness, shortness of breath, chest pain, or swelling of the ankles. Fatigue: Fatigue can be caused by many medical and emotional problems. Fatigue can be an early symptom of infection, or can be caused by chronic infection. It can be a symptom of metabolic diseases like diabetes, hypothyroidism, or anemia. It can result from sleep problems such as sleep apnea. Fatigue can be a symptom of depression. Overuse of alcohol or caffeine can cause fatigue. Many drugs can cause fatigue, either as a side effect or when withdrawing from the drug. Until the evaluation is complete, try to keep up your normal activities. Get regular sleep hours, but avoid oversleeping. Try to get regular exercise. Eliminate alcohol, caffeine, and any unnecessary drugs, herbs, or medicines (di scuss any changes in prescription medicines with your doctor). Contact the doctor if there is any change for the worse. Reflux Disease (GERD): Gastro-Esophageal Reflux Disease (GERD) is caused by stomach acid refluxing back up into the esophagus. The valve at the end of the esophagus may be weak. This is common in persons with a hiatal hernia. GERD symptoms can include indigestion, chest pain, heartburn, or food "sticking." Certain foods, alcohol, and aspirin can make GERD worse. Treatment depends on the severity. Usually, antacids or acid-suppressing medicines are used. When the esophagus is acutely inflamed, the physician will often prescribe membrane-protective drugs such as Carafate. Some patients benefit from medication such as Reglan that tightens the valve at the top of the stomach. Avoid those foods that bring on your symptoms. For many people, these foods are coffee, chocolate, onions, garlic, and carbonated drinks. Don't use alcohol, aspirin, caffeine, or tobacco. Don't eat late at night -- within 4 hours of bedtime. Don't over-eat. If necessary, elevate the head of your bed about 4 inches so that stomach acid will not roll up into your esophagus. Call the doctor if you develop severe chest pain, inability to swallow fluids, fever, or worsening symptoms. Your EKG was normal today. Cardiac enzymes are undetectable. A D-dimer test for blood clotting was also normal. Your chest x-ray showed some atelectasis in the left lung base, which is likely due to your smoking history. Your shoulder pain seem to be reproducible on palpating the shoulders. There was no clear explanation for the fatigue you are feeling today. You most likely have a mild viral syndrome causing you to have lack of appetite, achiness in the shoulders, and feeling excessively tired after sleeping all night. For now you should drink plenty of fluids get plenty of rest. If you continue having indigestion, take antacids between meals and at bedtime and take Prilosec once daily. If that does not improve the indigestion episodes, you should follow-up with your health records technology teacher. Follow-up with your primary care provider if your symptoms do not improve over the next few days. RETURN TO THE EMERGENCY ROOM IF ANY NEW OR WORSENING SYMPTOMS. Referrals: DANIAL NAYLOR, [employer] [facility] [NURSE PRACTITIONER] - Follow up as needed I personally performed the services described in the documentation, reviewed and edited the documentation which was dictated to the scribe in my presence, and it accurately records my words and actions.
--- NOTE | 2020-04-11 18:14 | EKG REPORT ---
SEVERITY:- OTHERWISE NORMAL ECG - SINUS TACHYCARDIA : Confirmed by: Roland Olivier 11-Apr-2020 18:13:13
== END 2020-04-11 16:24 | disposition home or self-care (01) ==
LOC: ER 12:15
DX: R42 Dizziness and giddiness (principal); M25.511 Pain in right shoulder; M25.512 Pain in left shoulder; F17.218 Nicotine dependence, cigarettes, with other nicotine-induced disorders; J41.0 Simple chronic bronchitis; J98.11 Atelectasis; R53.83 Other fatigue; K21.9 Gastro-esophageal reflux disease without esophagitis; R12 Heartburn; R00.0 Tachycardia, unspecified; Z79.899 Other long term (current) drug therapy; Z82.3 Family history of stroke
CPT/HCPCS: 36415; 71046; 80053; 83690; 83735; 84443; 84484; 84703; 85025; 85379; 93005; 93010; 99285

== ENCOUNTER → 2020-06-13 | Outpatient (CLI) | payer OTHER ==
--- NOTE | 2020-06-13 10:00 | WOMENS IMAGING REPORT ---
EXAM DESCRIPTION: BILAT SCREENING MAMMO W/CAD IMAGES COMPLETED DATE/TIME: 06/13/2020 8:48 am REASON FOR STUDY: Z12.31 ENCOUNTER FOR SCREENING MAMMOGRAM FOR MALIGNANT NEOPLASM OF BREAST Z12.31 ENCNTR SCREEN MAMMOGRAM FOR MALIGNANT NEOPLASM OF LEILA COMPARISON: 2019 EXAM PARAMETERS: Standard craniocaudal and mediolateral oblique views of each breast recorded using digital acquisition. Read with the assistance of CAD. .[facility] - [employer] Version 9.2 LIMITATIONS: None. FINDINGS: No suspicious masses, suspicious calcifications or architectural distortion. No areas of c oncern. IMPRESSION: NEGATIVE MAMMOGRAM. BIRADS 1 BREAST DENSITY: c. The breasts are heterogeneously dense, which may obscure small masses. BIRAD: ASSESSMENT: 1 NEGATIVE RECOMMENDATION: ROUTINE SCREENING COMMENT: The patient has been notified of the results by letter per MQSA requirements. Additional no tification policies are in place for contacting patient with suspicious or incomplete findings. Quality ID #[id number]: The [employer] recommends an annual screening mammogram for women aged 40 years or over. This facility utilizes a reminder system to ensure that all patients receive reminder letters, and/or direct phone calls for appointments. This includes reminders for routine scr eening mammograms, diagnostic mammograms, or other Breast Imaging Interventions when appropriate. Th is patient will be placed in the appropriate reminder system. TECHNICAL DOCUMENTATION: FINDING NUMBER: (1) ASSESSMENT: (1) JOB ID: [id number] 2010 [employer]- All Rights Reserved Reading location - IP/workstation name: [email or web address]
== END ==
LOC: WI 08:03
PROVIDERS: ATTEND Nurse Practitioner Family
DX: Z12.31 Encounter for screening mammogram for malignant neoplasm of breast (principal)
CPT/HCPCS: 77067